=== PATIENT | female | born 1935 | race Caucasian/White ===

== ENCOUNTER 2020-07-28 18:33 | Emergency (ER) | payer BC, MEDICARE ==
--- NOTE | 2020-07-28 20:25 | ER Document Report ---
ED Medical Screen (RME) - General Chief Complaint: General Weakness Stated Complaint: SORE THROAT Time Seen by Provider: 07/28/20 20:08 - HPI Notes: Patient is a 85 y/o female with a hx of dermatomyositis who presents with increased generalized weakness and difficulty swallowing for the past week. Patient is normally able to ambulate and do laundry without difficulty but has been unable to this past week. She also reports difficulty swallowing and can no longer swallow solids. She states she is able to tolerate liquids and her oral secretions without difficulty. She denies fever, chest pain, shortness of breath, and abdominal pain. 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 - Related Data Home Medications: Prednisone, Lisinopril, Simvastatin, Synthroid Physical Exam - Vital signs Vitals: Temp Pulse Resp BP Pulse Ox 98.1 F 94 18 98/51 L 98 07/28/20 18:43 07/28/20 18:43 07/28/20 18:43 07/28/20 18:43 07/28/20 18:43 - HEENT Neck: Normal. No: Anterior cervical chain, Posterior cervical chain - Respiratory Respiratory status: No respiratory distress Breath sounds: Normal Course - Re-evaluation Re-evalutation: I have greeted and performed a rapid initial assessment of this patient. A comprehensive ED assessment and evaluation of the patient, analysis of test results and completion of medical decision making process will be conducted by an additional ED providers. - Vital Signs Vital signs: Temp Pulse Resp BP Pulse Ox 98.1 F 94 18 98/51 L 98 07/28/20 18:43 07/28/20 18:43 07/28/20 18:43 07/28/20 18:43 07/28/20 18:43
[2020-07-28 21:21] LABS: ABSOLUTE LYMPHOCYTES (AUTO) 0.7 10^3/uL (0.5-4.7); ABSOLUTE MONOCYTES (AUTO) 0.6 10^3/uL (0.1-1.4); ABSOLUTE NEUT (AUTO) 7.1 10^3/uL (1.7-8.2); BASOPHILS % (AUTO) 0.4 % (0-2); EOSINOPHILS % (AUTO) 0.3 % (0-6); HEMOGLOBIN 11.7 g/dL (12.0-15.5); LYMPHOCYTES % (AUTO) 8.3 % (13-45); MEAN CORPUSCULAR HEMOGLOBIN 30.4 pg (27.0-33.4); MEAN CORPUSCULAR HGB CONC 34.4 g/dL (32.0-36.0); MEAN CORPUSCULAR VOLUME 88 fl (80-97); MONOCYTES % (AUTO) 6.8 % (3-13); PLATELET COUNT 267 10^3/uL (150-450); RED BLOOD COUNT 3.85 10^6/uL (3.72-5.28); RED CELL DISTRIBUTION WIDTH 14.3 % (11.5-14.0); SEGMENTED NEUTROPHILS % (AUTO) 84.2 % (42-78); TOTAL CELLS COUNTED % (AUTO) 100 %; WHITE BLOOD COUNT 8.4 10^3/uL (4.0-10.5)
[2020-07-28 21:38] LABS: ALBUMIN 3.8 g/dL (3.5-5.0); ALKALINE PHOSPHATASE 50 U/L (38-126); ANION GAP 9 (5-19); ASPARTATE AMINO TRANSFERASE 43 U/L (14-36); BILIRUBIN,DIRECT 0.3 mg/dL (0.0-0.4); BILIRUBIN,TOTAL 0.8 mg/dL (0.2-1.3); BLOOD UREA NITROGEN 43 mg/dL (7-20); CALCIUM 10.1 mg/dL (8.4-10.2); CARBON DIOXIDE 22 mmol/L (22-30); CHLORIDE 104 mmol/L (98-107); GLUCOSE 143 mg/dL (75-110); POTASSIUM 4.9 mmol/L (3.6-5.0)
--- NOTE | 2020-07-28 22:30 | RADIOLOGY REPORT (SQ) ---
EXAM DESCRIPTION: XR CHEST 1 VIEW COMPLETED DATE/TME: 07/28/2020 22:07 CLINICAL HISTORY: 85 years, Female, difficulty swallowing COMPARISON: None. NUMBER OF VIEWS: 1 TECHNIQUE: Portable chest LIMITATIONS: None. FINDINGS: Cardiomegaly. Atheromatous change thoracic aorta. Osteopenia. Suspect small left effusion with minimal adjacent airspace opacity. No pneumothorax IMPRESSION: Cardiomegaly. Small left effusion with adjacent airspace opacity may reflect minor atelectasis or pneumonitis copyright 2011 [employer]- All Rights Reserved
--- NOTE | 2020-07-28 22:31 | RADIOLOGY REPORT (SQ) ---
EXAM DESCRIPTION: CT NECK WITH IV CONTRAST COMPLETED DATE/TME: 07/28/2020 22:16 CLINICAL HISTORY: 85 years, Female, difficulty swallowing COMPARISON: None. TECHNIQUE: 381 Images stored on PACS. All CT scanners at this facility use dose modulation, iterative reconstruction, and/or weight based dosing when appropriate to reduce radiation dose to as low as reasonably achievable (ALARA). [facility]: Dose Right [facility]: CareDose [facility]: Dose Right [facility]: Teradose 4D [facility]: [employer] LIMITATIONS: None. FINDINGS: Limited evaluation of brain parenchyma is unremarkable. The globes are intact. The paranasal sinuses and mastoid air cells are well aerated. The epiglottis is normal. The prevertebral soft tissues are normal. The airway is widely patent. There is no enhancing abnormality. The visualized parotid and some mandibular glands are unremarkable. Limited evaluation of the lung apices is unremarkable. There is no cervical chain adenopathy. IMPRESSION: Unremarkable CT neck TECHNICAL DOCUMENTATION: Quality ID # 436: Final reports with documentation of one or more dose reduction techniques (e.g., Automated exposure control, adjustment of the mA and/or kV according to patient size, use of iterative reconstruction technique) copyright 2010 [employer]- All Rights Reserved
--- NOTE | 2020-07-28 22:39 | EKG REPORT ---
SEVERITY:- ABNORMAL ECG - SINUS TACHYCARDIA LEFT AXIS DEVIATION CONSIDER ANTERIOR INFARCT NONSPECIFIC T ABNORMALITIES, DIFFUSE LEADS : Confirmed by: Jesi Trujillo 28-Jul-2020 22:39:11
[2020-07-28] MEDS ORDERED: NORMAL SALINE 1000 ML 1,000 ML IV ONE (22:42)
--- NOTE | 2020-07-28 22:55 | ER Document Report ---
ED General - General Chief Complaint: General Weakness Stated Complaint: SORE THROAT Time Seen by Provider: 07/28/20 20:08 Primary Care Provider: BANDAR YEUNG DO [NO LOCAL MD] - 07/29/20 BETTY CAROLINA MD [ACTIVE PROVISIONAL STAFF] - Follow up as needed - HPI Context: Chief Complaint: [Recent falls, difficulty swallowing solids] [This is a 85-year-old female with a history of elevated cholesterol, mild kidney insufficiency, recent diagnosis of dermatomyositis presenting to the emergency department for evaluation of difficulty swallowing. Patient is visiting from [facility] and stays with her daughter from May to November of each year. Patient reports that over the past 2 weeks she has noticed some difficulty that has gotten worse in terms of being able to swallow solids. P atient states she is still able to drink water and drink soup but after trying to swallow a spaghetti noodle earlier today that she could not get to pass, she became concerned and told her daughter that she thought she needed to come to the hospital. Patient also had a fall approximately 2 days ago. Patient was noted to be found on the floor by her daughter. Patient had reportedly fallen at 1230 on Wednesday and was on the floor for approximately 5 hours. Patient denies chest pain, shortness of breath, fever, chills, difficulty with speech, changes in vision, facial droop. Patient denies odynophagia, loss of sense of taste, loss of sense of smell, history of COVID-19 infection. Patient is usually able to walk and perform daily activities of living ] History obtained from [patient] Symptoms began:[ 2 weeks ago ] Onset: [gradual ] Timing: [gradual ] Quality: [painless ] Intensity: [0/5 ] Location: [generalized, gi tract ] Radiation: [denies ] [The pain does not migrate to a new location.] Aggravating factors: [none] Relieving factors: [none] [Denies] SOB [Denies] nausea [Denies] vomiting [Denies] sweats [Denies] fever [Denies] cough [Denies] calf or leg swelling or pain - Related Data Allergies/Adverse Reactions: ciprofloxacin [From Cipro] Allergy (Verified 07/28/20 20:22) Home Medications: Prednisone, Lisinopril, Simvastatin, Synthroid Past Medical History - General Information source: Patient, Relative - Social History Smoking Status: Never Smoker Family History: Reviewed & Not Pertinent Patient has homicidal ideation: No Review of Systems - Review of Systems Notes: Review of systems as below unless otherwise stated in HPI. CONSTITUTIONAL [No] fever, [No] chills. Positive weakness EYES [No] eye pain. ENT [No] URI symptoms, [No] sore throat, [No] ear pain. CARDIOVASCULAR [No] chest pain, [No] palpitations, [No] edema. RESPIRATORY [No] Cough, [No] SOB, [No] wheezing. GASTROINTESTINAL [No] abdominal pain, [No] nausea, [No] Diarrhea, [No] Vomiting, [No] constipation, [No] melena, [No] rectal bleeding. Positive dysphagia GENITOURINARY [No] dysuria, [No] urinary frequency, [No] hematuria, [No] urinary urgency, [No] vaginal discharge, [No] vaginal bleeding. MUSCULOSKELETAL [No] Back pain. SKIN [No] Rash. NEUROLOGIC [No] Headache, [No] recent seizures, [No] paralysis,[No] parathesias. ENDOCRINE [No] polyuria. HEMO/LYMPATIC [No] easy brusing PSYCHIATRIC [No] depression. Physical Exam - Vital signs Vitals: Temp Pulse Resp BP Pulse Ox 98.1 F 94 18 98/51 L 98 07/28/20 18:43 07/28/20 18:43 07/28/20 18:43 07/28/20 18:43 07/28/20 18:43 - Notes Notes: CONSTITUTIONAL [Vital signs reviewed, Patient appears comfortable, Alert and oriented X 3, Normal stature.] HEAD [Atraumatic, Normocephalic.] EYES [Eyes are normal to inspection, No discharge from eyes, Extraocular muscles intact, Sclera are normal, Conjunctiva are normal.] ENT [External ears normal to inspection, Nose examination normal, Mouth normal to inspection with the exception of a aphthous ulcer present on the left side of the patient's mouth. There appears to be no discharge or exudate present on the tongue.] NECK [Normal ROM, No jugular venous distention, No meningeal signs, ] RESPIRATORY CHEST [Chest is nontender, Breath sounds normal, No respiratory distress.] CARDIOVASCULAR [RRR, No murmurs, Normal S1 S2, No rub, No gallop.] ABDOMEN [Abdomen is nontender, No pulsatile masses, No other masses, Bowel sounds normal, No distension, No peritoneal signs, No hernias.] BACK [There is no CVA Tenderness, There is no tenderness to palpation, Normal inspection.] UPPER EXTREMITY [Inspection normal, No cyanosis, No clubbing, No edema, LOWER EXTREMITY [Inspection normal, No cyanosis, No clubbing, No edema, No calf tenderness, NEURO [No focal motor deficits, No focal sensory deficits, Speech normal.] SKIN [Patient has diffuse facial erythema that is macular and sporadic erythematous lesions on her upper extremities bilaterally] PSYCHIATRIC [Normal affect. ] Course - Re-evaluation Re-evalutation: 07/29/20 07:00 Dr. Carolina kindly came to the emergency department and did a bedside echo and found no abnormalities. 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 He also agrees that the patient needs to get into see a brake drum lathe operator as soon as possible. He recommends Dr. Bandar Yeung with [facility] rheumatology. This MD will help arrange a referral for the patient to be seen as an outpatient as soon as possible. 07/29/20 09:16 Dr. Carolina stated he would get in touch with the patient's daughter to schedule an outpatient cardiology evaluation using his own ultrasound for a more thorough echo. However he does feel this can be done as an outpatient. - Vital Signs Vital signs: Temp Pulse Resp BP Pulse Ox 98.1 F 94 32 H 124/63 97 07/28/20 18:43 07/28/20 18:43 07/29/20 06:32 07/29/20 07:31 07/29/20 07:59 - Laboratory Results Result Diagrams: 07/28/20 21:00 07/29/20 01:18 Laboratory Results Interpreted: 07/28/20 07/28/20 07/29/20 21:00 21:00 01:18 Hgb 11.7 L Hct 34.0 L RDW 14.3 H Lymph % (Auto) 8.3 L Seg Neutrophils % 84.2 H Sodium 134.8 L 134.6 L Chloride 108 H Carbon Dioxide 21 L BUN 43 H 41 H Creatinine 1.35 H Est GFR ( Amer) 45 L 51 L Est GFR (MDRD) Non-Af 37 L 42 L Glucose 143 H AST 43 H Total Protein 5.7 L Albumin 2.9 L Ur Leukocyte Esterase 07/29/20 03:04 Hgb Hct RDW Lymph % (Auto) Seg Neutrophils % Sodium Chloride Carbon Dioxide BUN Creatinine Est GFR ( Amer) Est GFR (MDRD) Non-Af Glucose AST Total Protein Albumin Ur Leukocyte Esterase MODERATE H Critical Laboratory Results Reviewed: Yes Attending or Supervising Physician who Reviewed Labs: DANNY SHINE IV - Troponin levels discussed with Dr. Carolina - Radiology Results Critical Radiology Results Reviewed: No Critical Results Attending or Supervising Physician who Reviewed Radiology: DANNY SHINE IV - EKG Interpretation by Me Additional EKG results interpreted by me: 07/28/20 23:06 EKG obtained on 07/28/2020 2034 hrs. was interpreted by this MD. Findings sinus tachycardia, rate 100, left axis deviation is present, [place] interval appears to be within normal limits, P waves preceding QRS complexes, QRS complexes appear to be narrow, QTC is 449, there are no obvious patterns of ST segment elevation, depression or reciprocal changes seen to suggest acute myocardial ischemia or infarction. There is no prior EKG available for comparison. Impression: Sinus tachycardia with left axis deviation and nonspecific ST segments. - Consults Dr. Carolina, Cardiology Time consulted: 05:29 - Stated he did not have a good explanation for the elevation in troponins but recommended keeping the patient in the ED and he will come see her in the ED shortly into a bedside echo to evaluate if she has any cardiac ischemic abnormality Reason for consultation: 07/29/20 05:29 elevated but declining troponins in pt with renal insufficiency, dermatomyositis, generalized weakness Consulted provider: will come to ER Discharge - Discharge Clinical Impression: Dermatomyositis, Dehydration, Elevated troponin I level Dysphagia Qualifiers: Dysphagia type: unspecified Qualified Code(s): R13.10 - Dysphagia, unspecified UTI (urinary tract infection) Qualifiers: Urinary tract infection type: site unspecified Hematuria presence: without hematuria Qualified Code(s): N39.0 - Urinary tract infection, site not specified Condition: Stable Disposition: HOME, SELF-CARE Instructions: Urinary Tract Infection ([facility]) Additional Instructions: Return to the Emergency Department without delay if any worse. HOME CARE INSTRUCTIONS & INFORMATION: Thank you for choosing us for your medical needs. We hope you're satisfied with the care you received. After you leave, you must properly care for your problem and, at the same time, observe its progress. Any condition can change. Some illnesses can change rapidly over hours or days. If your condition worsens, return to the Emergency Department or see your physician promptly. ABOUT YOUR X-RAYS AND EKG'S: If you had an EKG or X-rays taken, they have been read by the Emergency Physician. The X-rays and EKG's will also be read by a Radiologist or Barrel Assembly Inspector within 24 hours. If discrepancies are noted, you will be notified by telephone. Please be certain the ED has a correct telephone number & address where you can be reached. Also, realize that some fractures or abnormalities do not show up on initial X-rays. If your symptoms continue, see your physician. ABOUT YOUR LABORATORY TEST: If you had laboratory tests, the results have been reviewed by the Emergency Physician. Some test results (for example cultures) may not be available for several days. You will be contacted if any test result shows you need additional treatment. Please be certain the ED has a correct telephone number and address where you can be reached. ABOUT YOUR MEDICATIONS: You will receive instructions on how to take your medicine on the prescription label you receive. Additional information may be provided by the Pharmacy. If you have questions afterwards, call the ED for clarification or further instructions. Some prescribed medications may cause drowsiness. Do not perform tasks such as driving a car or operating machinery without consulting your Pharmacist. If you feel you need a refill of pain medication, your condition will need re-evaluation. Please do not call for a refill of any medication. ABOUT YOUR SIGNATURE: Signature of this document acknowledges to followin. Understanding that you received emergency treatment and that you may be released before al medical problems are known or treated. Please be certain the ED has a correct phone number & address where you can be reached. 2. Acknowledgement that you will arrange for follow-up care as recommended. 3. Authorization for the Emergency Physician to provide information to your follow-up Physician in order to maximize your care. AT ANY TIME, IF YOUR SYMPTOMS CHANGE SIGNIFICANTLY OR WORSEN OR YOU DEVELOP NEW SYMPTOMS, RETURN TO THE EMERGENCY DEPARTMENT IMMEDIATELY FOR RE-EVALUATION. OUR GOAL IS TO PROVIDE EXCELLENT MEDICAL CARE! WE HOPE THAT WE HAVE MET YOUR EXPECTATIONS DURING YOUR EMERGENCY DEPARTMENT VISIT AND THAT YOU FEEL YOU HAVE RECEIVED EXCELLENT CARE! Prescriptions: Cefdinir 600 mg PO DAILY 7 Days #90 ml Prednisone [Deltasone 10 mg Tablet] 10 mg PO ASDIR PRN #21 tablet PRN Reason: Referrals: BANDAR YEUNG DO [NO LOCAL MD] - 07/29/20 BETTY CAROLINA MD [ACTIVE PROVISIONAL STAFF] - Follow up as needed
[2020-07-28] MEDS ORDERED: ASPIRIN 81 MG TABLET, CHEWABLE PO ONE (22:59)
[2020-07-28] MEDS ORDERED: METHYLPREDNISOLONE INJ 125 MG/2 ML SDV IV ONE (23:37)
--- NOTE | 2020-07-28 23:38 | RADIOLOGY REPORT (SQ) ---
EXAM DESCRIPTION: CT HEAD WITHOUT IV CONTRAST COMPLETED DATE/TME: 07/28/2020 23:13 CLINICAL HISTORY: 85 years, Female, recent falls and dysphagia COMPARISON: None. TECHNIQUE: 271 Images stored on PACS. All CT scanners at this facility use dose modulation, iterative reconstruction, and/or weight based dosing when appropriate to reduce radiation dose to as low as reasonably achievable (ALARA). [facility]: Dose Right [facility]: CareDose [facility]: Dose Right [facility]: Teradose 4D [facility]: [employer] LIMITATIONS: None. FINDINGS: The globes are intact. The paranasal sinuses and mastoid air cells are well aerated. No displaced or depressed skull fracture. No acute intracranial hemorrhage. CT is limited for evaluation of acute infarct. No CT evidence for large or territorial acute infarct. There is residual contrast within the vascular system, as the patient had a recent contrast-enhanced exam. This can limit assessment for subtle areas of intracranial hemorrhage. Mild diffuse atrophy. Minor small vessel ischemic change. No mass or midline shift IMPRESSION: Mild atrophy and small vessel ischemic change TECHNICAL DOCUMENTATION: Quality ID # 436: Final reports with documentation of one or more dose reduction techniques (e.g., Automated exposure control, adjustment of the mA and/or kV according to patient size, use of iterative reconstruction technique) copyright 2011 [employer]- All Rights Reserved
[2020-07-29 01:56] LABS: ALBUMIN 2.9 g/dL (3.5-5.0); ALKALINE PHOSPHATASE 52 U/L (38-126); ANION GAP 6 (5-19); ASPARTATE AMINO TRANSFERASE 35 U/L (14-36); BILIRUBIN,DIRECT 0.2 mg/dL (0.0-0.4); BILIRUBIN,TOTAL 0.6 mg/dL (0.2-1.3); BLOOD UREA NITROGEN 41 mg/dL (7-20); CALCIUM 8.8 mg/dL (8.4-10.2); CARBON DIOXIDE 21 mmol/L (22-30); CHLORIDE 108 mmol/L (98-107); GLUCOSE 101 mg/dL (75-110); POTASSIUM 4.5 mmol/L (3.6-5.0); TOTAL PROTEIN 5.7 g/dL (6.3-8.2)
[2020-07-29 03:34] LABS: APPEARANCE,URINE SLIGHTLY-CLOUDY; BILIRUBIN,URINE NEGATIVE (NEGATIVE); COLOR,URINE STRAW; GLUCOSE, URINE NEGATIVE (NEGATIVE); KETONES,URINE NEGATIVE (NEGATIVE); LEUKOCYTE ESTERASE,URINE MODERATE (NEGATIVE); NITRITE,URINE NEGATIVE (NEGATIVE); PROTEIN,URINE NEGATIVE (NEGATIVE); URINE SPECIFIC GRAVITY 1.029; UROBILINOGEN,URINE NEGATIVE mg/dL (<2.0)
[2020-07-29] MEDS ORDERED: NORMAL SALINE 1000 ML 1,000 ML IV ONE (04:19)
--- NOTE | 2020-07-29 07:15 | PDOC CONSULTATION ---
Consultation Consult Date: 07/29/20 Attending physician:: DANNY SHINE IV Provider Consulted: BETTY OLIVO Consult reason:: Elevated troponin History of Present Illness History of Present Illness: HENRY BARBER is a 85 year old female This is a 85-year-old female with a history of hypertension, hyperlipidemia, renal insufficiency and recently diagnosed with dermatomyositis who is consulted to our service for mildly elevated cardiac troponin levels. The patient had been in her usual state of health until several weeks ago when she began with difficulty swallowing and generalized muscular weakness particularly in the lower extremities. She is saw a provider in [place] who diagnosed her with dermatomyositis and then she traveled to [place] to spend a few months with her children. She specifically denies chest pain, shortness of breath, MEJIA, PND, lower extremity edema, palpitations, syncope and presyncope. Physical exam on 07/29/2020 in the emergency department: GENERAL: Pleasant and conversational. Oriented x3 with normal mood. Not in acute distress. Well groomed and well developed. HEENT: Normocephalic, atraumatic. Pupils equal. Sclerae anicteric. Oropharynx moist. NECK: No JVD. No carotid bruits. LUNGS: Clear to auscultation bilaterally. Normal respiratory effort without the use of accessory muscles or intercostal retractions. CARDIOVASCULAR: Regular rate and rhythm, normal S1 and S2 without murmurs, rubs, or gallops. PMI not displaced. ABDOMEN: No masses or tenderness to palpation. No bruit. No splenomegaly or hepatomegaly. No abdominal aorta bruit noted. EXTREMITIES: No edema, no cyanosis, no clubbing. +2 pulses femoral and pedal pulses bilaterally. SKIN: No lesions or rashes. MUSCULOSKELETAL: No chest tenderness to palpation. Bedside, limited echocardiogram performed by myself: -Normal LV systolic function without regional wall motion abnormalities. ] Social History Smoking Status: Never Smoker Family History Family History: Reviewed & Not Pertinent Parental Family History Reviewed: Yes Children Family History Reviewed: Yes Sibling(s) Family History Reviewed.: Yes Medication/Allergy Allergies/Adverse Reactions: ciprofloxacin [From Cipro] Allergy (Verified 07/28/20 20:22) Physical Exam Vital Signs: Temp Pulse Resp BP Pulse Ox 98.1 F 94 18 98/51 L 98 07/28/20 18:43 07/28/20 18:43 07/28/20 18:43 07/28/20 18:43 07/28/20 18:43 Intake & Output 07/28/20 07/29/20 07/30/20 06:59 06:59 06:59 Intake Total 1999 Balance 1999 Weight 51.7 kg Results Laboratory Results: 07/28/20 21:00 07/29/20 01:18 07/28/20 07/28/20 07/28/20 21:00 21:00 21:00 WBC 8.4 RBC 3.85 Hgb 11.7 L Hct 34.0 L MCV 88 MCH 30.4 MCHC 34.4 RDW 14.3 H Plt Count 267 Seg Neutrophils % 84.2 H Sodium 134.8 L Potassium 4.9 Chloride 104 Carbon Dioxide 22 Anion Gap 9 BUN 43 H Creatinine 1.35 H Est GFR ( Amer) 45 L Glucose 143 H Calcium 10.1 Magnesium 2.1 Total Bilirubin 0.8 AST 43 H Alkaline Phosphatase 50 Total Protein 7.0 Albumin 3.8 Urine Color Urine Appearance Urine pH Ur Specific [place] Urine Protein Urine Glucose (UA) Urine Ketones Urine Blood Urine Nitrite Ur Leukocyte Esterase Urine WBC (Auto) Urine RBC (Auto) 07/29/20 07/29/20 01:18 03:04 WBC RBC Hgb Hct MCV MCH MCHC RDW Plt Count Seg Neutrophils % Sodium 134.6 L Potassium 4.5 Chloride 108 H Carbon Dioxide 21 L Anion Gap 6 BUN 41 H Creatinine 1.21 Est GFR ( Amer) 51 L Glucose 101 Calcium 8.8 Magnesium Total Bilirubin 0.6 AST 35 Alkaline Phosphatase 52 Total Protein 5.7 L Albumin 2.9 L Urine Color STRAW Urine Appearance SLIGHTLY-CLOUDY Urine pH 5.0 Ur Specific [place] 1.029 Urine Protein NEGATIVE Urine Glucose (UA) NEGATIVE Urine Ketones NEGATIVE Urine Blood NEGATIVE Urine Nitrite NEGATIVE Ur Leukocyte Esterase MODERATE H Urine WBC (Auto) 10 Urine RBC (Auto) 1 07/28/20 07/28/20 07/28/20 21:00 21:00 23:55 Creatine Kinase 57 Troponin I 0.844 0.647 07/29/20 01:18 Creatine Kinase Troponin I 0.648 Impressions: Chest X-Ray 07/28/20 20:19 IMPRESSION: Cardiomegaly. Small left effusion with adjacent airspace opacity may reflect minor atelectasis or pneumonitis copyright 2011 [employer] All Rights Reserved Soft Tissue Neck CT 07/28/20 20:19 IMPRESSION: Unremarkable CT neck TECHNICAL DOCUMENTATION: Quality ID # 436: Final reports with documentation of one or more dose reduction techniques (e.g., Automated exposure control, adjustment of the mA and/or kV according to patient size, use of iterative reconstruction technique) copyright 2010 [employer])- All Rights Reserved Head CT 07/28/20 22:43 IMPRESSION: Mild atrophy and small vessel ischemic change TECHNICAL DOCUMENTATION: Quality ID # 436: Final reports with documentation of one or more dose reduction techniques (e.g., Automated exposure control, adjustment of the mA and/or kV according to patient size, use of iterative reconstruction technique) copyright 2010 [employer] All Rights Reserved 07/28/20 21:00 07/29/20 01:18 MCV 88 fl (80-97) 07/28/20 21:00 MCH 30.4 pg (27.0-33.4) 07/28/20 21:00 MCHC 34.4 g/dL (32.0-36.0) 07/28/20 21:00 RDW 14.3 % (11.5-14.0) H 07/28/20 21:00 Seg Neutrophils % 84.2 % (42-78) H 07/28/20 21:00 Chloride 108 mmol/L (98-107) H 07/29/20 01:18 Carbon Dioxide 21 mmol/L (22-30) L 07/29/20 01:18 Anion Gap 6 (5-19) 07/29/20 01:18 Est GFR ( Amer) 51 (>60) L 07/29/20 01:18 Glucose 101 mg/dL (75-110) 07/29/20 01:18 Calcium 8.8 mg/dL (8.4-10.2) 07/29/20 01:18 Magnesium 2.1 mg/dL (1.6-2.3) 07/28/20 21:00 Total Bilirubin 0.6 mg/dL (0.2-1.3) 07/29/20 01:18 AST 35 U/L (14-36) 07/29/20 01:18 Alkaline Phosphatase 52 U/L (38-126) 07/29/20 01:18 Total Protein 5.7 g/dL (6.3-8.2) L 07/29/20 01:18 Albumin 2.9 g/dL (3.5-5.0) L 07/29/20 01:18 Urine Color STRAW 07/29/20 03:04 Urine Appearance SLIGHTLY-CLOUDY 07/29/20 03:04 Urine pH 5.0 (5.0-9.0) 07/29/20 03:04 Ur Specific [place] 1.029 07/29/20 03:04 Urine Protein NEGATIVE mg/dL (NEGATIVE) 07/29/20 03:04 Urine Glucose (UA) NEGATIVE mg/dL (NEGATIVE) 07/29/20 03:04 Urine Ketones NEGATIVE mg/dL (NEGATIVE) 07/29/20 03:04 Urine Blood NEGATIVE (NEGATIVE) 07/29/20 03:04 Urine Nitrite NEGATIVE (NEGATIVE) 07/29/20 03:04 Ur Leukocyte Esterase MODERATE (NEGATIVE) H 07/29/20 03:04 Urine WBC (Auto) 10 /HPF 07/29/20 03:04 Urine RBC (Auto) 1 /HPF 07/29/20 03:04 07/28/20 07/28/20 07/28/20 21:00 21:00 23:55 Creatine Kinase 57 Troponin I 0.844 0.647 07/29/20 01:18 Creatine Kinase Troponin I 0.648 Current Medication List Discontinued Medications Generic Name Dose Route Start Last Admin Trade Name Dayoq PRN Reason Stop Dose Admin Aspirin 324 mg 07/28/20 22:59 07/28/20 23:13 Aspirin 81 Mg Tablet, Chewable PO 07/28/20 23:00 324 mg NOW ONE Administration Sodium Chloride 1,000 mls @ 0 mls/hr 07/28/20 22:42 07/29/20 00:09 Nacl 0.9% 1000 Ml Iv Soln IV 07/28/20 22:43 Infused BOLUS ONE Infusion Wide Open Sodium Chloride 1,000 mls @ 0 mls/hr 07/29/20 04:19 07/29/20 05:09 Nacl 0.9% 1000 Ml Iv Soln IV 07/29/20 04:20 Infused BOLUS ONE Infusion Wide Open Methylprednisolone Sodium Succinate 50 mg 07/28/20 23:37 07/29/20 00:05 Methylprednisolone Inj 125 Mg/2 Ml Sdv IV 07/28/20 23:38 50 mg NOW ONE Administration Assessment & Plan - Diagnosis (1) Elevated troponin Is this a current diagnosis for this admission?: Yes Plan: 85-year-old female with a recent diagnosis of dermatomyositis who came to the emergency room for generalized weakness and trouble swallowing. She has remained asymptomatic from the cardiovascular standpoint and specifically denied ischemic symptoms as well as heart failure symptoms. Her troponin peaked at 0.8 and is already trending down to 0.6. A limited bedside echocardiogram performed by me using the ultrasound machine in the emergency room demonstrated a normal ejection fraction without regional wall motion abnormalities. Although dermatomyositis is more associated with elevated cardiac troponin T it can also be rarely associated with elevated troponin I. Given the fact that the patient has no ischemic symptoms whatsoever and that her bedside echocardiogram was of good quality and did not reveal any regional wall motion normalities or abnormal ejection fraction I believe her elevated troponin is likely from dermatomyositis. Recommendations: -No indication for further cardiac work-up at this point. -I will try to arrange rheumatology consult with Dr. Bandar Yeung at [facility].
[2020-07-29] MEDS ORDERED: CEFTRIAXONE 1 GM/D5W RTU 1 GM/50 ML RTUPB IV ONE (07:32)
[2020-07-29 07:50] VITALS: BP 124/63
== END 2020-07-29 08:28 | disposition home or self-care (01) ==
LOC: ER 18:33
DX: M33.90 Dermatopolymyositis, unspecified, organ involvement unspecified (principal); R13.10 Dysphagia, unspecified; N39.0 Urinary tract infection, site not specified; E86.0 Dehydration; R53.1 Weakness; N28.9 Disorder of kidney and ureter, unspecified; I11.9 Hypertensive heart disease without heart failure; J90 Pleural effusion, not elsewhere classified; K12.0 Recurrent oral aphthae; R00.0 Tachycardia, unspecified; R79.89 Other specified abnormal findings of blood chemistry; E78.5 Hyperlipidemia, unspecified; E78.00 Pure hypercholesterolemia, unspecified; Z79.52 Long term (current) use of systemic steroids; Z79.899 Other long term (current) drug therapy; Z88.1 Allergy status to other antibiotic agents
CPT/HCPCS: 93005; 99285; 96361; 96375; 96365; 36415; 82550; 83735; 85025; 80053; 81001; 84484; 71045; 70450; 70491; 93010; J2930; J7030 ×2; J0696

== ENCOUNTER 2020-08-01 17:25 | Inpatient (IN) | payer MEDICARE ==
--- NOTE | 2020-08-01 18:12 | RADIOLOGY REPORT (SQ) ---
EXAM DESCRIPTION: CT CERVICAL SPINE WITHOUT IMAGES COMPLETED DATE/TIME: 08/01/2020 5:58 pm REASON FOR STUDY: fall COMPARISON: None. TECHNIQUE: Axial images acquired through the cervical spine without intravenous contrast. Images re viewed with lung, soft tissue and bone windows. Reconstructed coronal and sagittal MPR images review ed. Images stored on PACS. All CT scanners at this facility use dose modulation, iterative reconstruction, and/or weight based d osing when appropriate to reduce radiation dose to as low as reasonably achievable (ALARA). [facility]: Dose Right [facility]: CareDose [facility]: Dose Right [facility]: Teradose 4D [facility]: Smart [employer] RADIATION DOSE: CT Rad equipment meets quality standard of care and radiation dose reduction techniq ues were employed. CTDIvol: 11.3 mGy. DLP: 228 mGy-cm. mGy. LIMITATIONS: None. FINDINGS: ALIGNMENT: Anatomic. MINERALIZATION: Normal. VERTEBRAL BODIES: No fractures or dislocation. DISCS: Disc spaces are narrowed from C3-C7. Very small marginal osteophytes are present FACETS, LATERAL MASSES, POSTERIOR ELEMENTS: No fractures. No dislocation. No acute findings. HARDWARE: None in the spine. VISUALIZED RIBS: No fractures. LUNG APICES AND SOFT TISSUES: No significant or acute findings. OTHER: No other significant finding. IMPRESSION: Degenerative disc disease and spondylosis. No acute findings. TECHNICAL DOCUMENTATION: JOB ID: [id number] Quality ID # 436: Final reports with documentation of one or more dose reduction techniques (e.g., Au tomated exposure control, adjustment of the mA and/or kV according to patient size, use of iterative reconstruction technique) 2010 [employer]- All Rights Reserved Reading location - IP/workstation name: [email or web address]
--- NOTE | 2020-08-01 18:14 | RADIOLOGY REPORT (SQ) ---
EXAM DESCRIPTION: CT HEAD WITHOUT IMAGES COMPLETED DATE/TIME: 08/01/2020 5:58 pm REASON FOR STUDY: fall COMPARISON: None. TECHNIQUE: Axial images acquired through the brain without intravenous contrast. Images reviewed wi th bone, brain and subdural windows. Additional sagittal and coronal reconstructions were generated. Images stored on PACS. All CT scanners at this facility use dose modulation, iterative reconstruction, and/or weight based d osing when appropriate to reduce radiation dose to as low as reasonably achievable (ALARA). [facility]: Dose Right [facility]: CareDose [facility]: Dose Right [facility]: Teradose 4D [facility]: Smart SHERPA assistant RADIATION DOSE: CT Rad equipment meets quality standard of care and radiation dose reduction techniq ues were employed. CTDIvol: 53.2 mGy. DLP: 991 mGy-cm. mGy. LIMITATIONS: None. FINDINGS: VENTRICLES: Normal size and contour. CEREBRUM: No masses. No hemorrhage. No midline shift. No evidence for acute infarction. Normal gra y/white matter differentiation. No areas of low density in the white matter. CEREBELLUM: No masses. No hemorrhage. No alteration of density. No evidence for acute infarction. EXTRAAXIAL SPACES: No fluid collections. No masses. ORBITS AND GLOBE: No intra- or extraconal masses. Normal contour of globe without masses. CALVARIUM: No fracture. PARANASAL SINUSES: No fluid or mucosal thickening. SOFT TISSUES: No mass or hematoma. OTHER: No other significant finding. IMPRESSION: NORMAL BRAIN CT WITHOUT CONTRAST. EVIDENCE OF ACUTE STROKE: NO. COMMENT: Quality ID # 436: Final reports with documentation of one or more dose reduction techniques (e.g., Automated exposure control, adjustment of the mA and/or kV according to patient size, use of iterative reconstruction technique) TECHNICAL DOCUMENTATION: JOB ID: [id number] 2010 Currently- All Rights Reserved Reading location - IP/workstation name: [email or web address]
[2020-08-01] MEDS ORDERED: DIPH/PERTUSS(ACELL)/TETANUS VAC/PF 0.5 ML SYR (>=10YO) IM ONE (22:43)
[2020-08-01 23:07] LABS: HEMATOCRIT 30.6 % (36.0-47.0); HEMOGLOBIN 10.2 g/dL (12.0-15.5); MEAN CORPUSCULAR HEMOGLOBIN 29.6 pg (27.0-33.4); MEAN CORPUSCULAR HGB CONC 33.5 g/dL (32.0-36.0); MEAN CORPUSCULAR VOLUME 88 fl (80-97); PLATELET COUNT 246 10^3/uL (150-450); RED BLOOD COUNT 3.47 10^6/uL (3.72-5.28); RED CELL DISTRIBUTION WIDTH 14.4 % (11.5-14.0); WHITE BLOOD COUNT 9.1 10^3/uL (4.0-10.5)
[2020-08-01 23:22] LABS: ALBUMIN 3.1 g/dL (3.5-5.0); ALKALINE PHOSPHATASE 33 U/L (38-126); ASPARTATE AMINO TRANSFERASE 34 U/L (14-36); BILIRUBIN,DIRECT 0.2 mg/dL (0.0-0.4); BILIRUBIN,TOTAL 0.8 mg/dL (0.2-1.3); BLOOD UREA NITROGEN 34 mg/dL (7-20); CALCIUM 8.8 mg/dL (8.4-10.2); CARBON DIOXIDE 21 mmol/L (22-30); CHLORIDE 111 mmol/L (98-107); CREATINE KINASE 37 U/L (30-135); GLUCOSE 103 mg/dL (75-110); POTASSIUM 4.3 mmol/L (3.6-5.0); TOTAL PROTEIN 5.9 g/dL (6.3-8.2)
--- NOTE | 2020-08-01 23:23 | RADIOLOGY REPORT (SQ) ---
CLINICAL INDICATION: weakness fall. . TECHNIQUE: Single view(s) obtained of the pelvis. COMPARISON: None. FINDINGS: No acute displaced fracture is identified. Alignment appears anatomic. Osteoarthritis. Surrounding soft tissues are unremarkable. IMPRESSION: No acute displaced fracture is identified.
--- NOTE | 2020-08-01 23:24 | RADIOLOGY REPORT (SQ) ---
CLINICAL INDICATION: weakness fall. TECHNIQUE: A single portable AP view was obtained of the chest at 2250 hours. COMPARISON: July 28, 2020. FINDINGS: The cardiomediastinal silhouette is enlarged but stable. The lungs are grossly clear. No evidence of effusion or pneumothorax. Chronic changes. Osteoarthritis. IMPRESSION: No evidence of active intrathoracic disease. Chronic change
[2020-08-01 23:28] LABS: ANION GAP 3 (5-19)
[2020-08-01 23:31] LABS: ABSOLUTE MONOCYTES # (MANUAL) 0.5 10^3/uL (0.1-1.4); BASOPHILS % (MANUAL) 0 % (0-2); EOSINOPHILS % (MANUAL) 0 % (0-6); LYMPHOCYTES % (MANUAL) 11 % (13-45); MONOCYTES % (MANUAL) 5 % (3-13); SEGMENTED NEUTROPHILS % (MAN) 84 % (42-78); TOTAL CELLS COUNTED 100
--- NOTE | 2020-08-01 23:31 | ER Document Report ---
ED General - General Chief Complaint: Fall Stated Complaint: FALL Notes: 85-year-old female with hypertension, hyperlipidemia, hypothyroidism, and recent diagnosis of dermatomyositis presents with fall just prior to arrival. Patient and daughter state that patient was transferring to standing and that she lost her balance and fell hitting her head. Patient and daughter state that patient has over the past year has had worsening gait stability and has had falls pr eviously, they deny any acute change in this although they do endorse perhaps generalized mild weakness worse over shorter timeframe but unknown duration. Patient feels well. Patient/daughter deny LOC, altered mental status, anticoagulation/antiplatelet therapy, neck pain, back pain, chest pain, s hortness of breath, abdominal pain, vomiting, recent fevers, urinary symptoms, cough, sick contacts, cardiac history. Patient was seen in the ED 4 days ago for gradually worsening several weeks of difficulty swallowing and had UA that showed moderate LE and was started on antibiotics which patient has been taking. Patient denies ever having any recent urinary symptoms. Unknown last tetanus vaccination booster. - Related Data Allergies/Adverse Reactions: ciprofloxacin [From Cipro] Allergy (Verified 07/28/20 20:22) Past Medical History - General Information source: Patient, Relative - Social History Smoking Status: Never Smoker Frequency of alcohol use: None Drug Abuse: None Family History: Reviewed & Not Pertinent Past Surgical History: Reports: Hx Hysterectomy - partial Review of Systems - Review of Systems Notes: REVIEW OF SYSTEMS: CONSTITUTIONAL : Denies fever, chills, or sweats. EENT: Denies recent cold/sinus symptoms, denies throat pain CARDIOVASCULAR: Denies chest pain, [place] RESPIRATORY: Denies cough, denies shortness of breath. GASTROINTESTINAL: Denies abdominal pain, nausea/vomiting. GENITOURINARY: Denies difficulty urinating, painful urination. FEMALE GENITOURINARY: Denies vaginal bleeding, vaginal discharge. MUSCULOSKELETAL: Denies neck pain, back pain. SKIN: Denies rash or skin lesions. HEMATOLOGIC : Denies easy bruising or bleeding. LYMPHATIC: Denies swollen, enlarged glands. NEUROLOGICAL: Denies headache, denies change in gait. PSYCHIATRIC: Denies anxiety or stress or depression. Physical Exam - Vital signs Vitals: Resp 13 08/01/20 17:28 - Notes Notes: PHYSICAL EXAMINATION: GENERAL: Well-appearing, well-nourished talkative pleasant elderly woman sitting up in stretcher with no visible signs of discomfort and in no acute distress. HEAD: Approximately 3 cm area of very mild edema over left parietal scalp with small abrasion, no active bleeding, no skull deformities. EYES: Pupils equal round and appropriate constriction, sclera anicteric, conjunctiva are normal. ENT: nares patent, moist mucous membranes. NECK/BACK: Normal range of motion, supple without lymphadenopathy no C/T/L/S sp inal deformity or tenderness LUNGS: Breath sounds clear to auscultation bilaterally and equal. No wheezes rales or rhonchi. Normal respiratory rate and effort HEART/CHEST: Regular rate and rhythm with faint systolic murmur loudest over upper right sternal border no chest tenderness, no signs of trauma ABDOMEN: Soft, nontender, no guarding, no masses, no CVAT EXTREMITIES: Normal range of motion, no pitting or edema. No cyanosis. Pelvis stable, no bony tenderness on full undressed head to toe trauma evaluation with rolling. Patient with very faint abrasion over left elbow nontender full range of motion NEUROLOGICAL: Awake, alert, conversing appropriately, moves all extremities s pontaneously. PSYCH: Normal mood, normal affect. SKIN: Warm, Dry, normal turgor Course - Re-evaluation Re-evalutation: 08/01/20 23:42 Patient with fall likely secondary to chronic gait instability and generalized weakness, but appears to be more weak recently of unknown duration so obtain EKG chest x-ray labs to rule out atypical ACS, electrolyte abnormalities, symptomatic anemia. CT head and cervical spine CT without any emergent findings. Patient with elevated troponin on further discussion with patient and daughter and review of past chart patient had this on his visit 4 days ago and it has decreased greatly since then. On that ED visit women's activities adviser Dr. Carolina evaluated patient in ED performed bedside echo and attributed elevated troponin to myocardial contusion and was discharged with follow-up outpatient. Given patient's age and recent appendicitis diagnosis which could be a sign of underlying malignancy will obtain D-dimer but low pretest probability and no other risk factors so Wells score is low and able to rule out with D-dimer. Will obtain 4-hour repeat troponin in the sure that troponin level continues to downtrend as this troponin level is consistent with a prior elevation of 4 days ago and continued circulation and blood unless there is uptrending on repeat. We will continue to monitor. 08/02/20 06:36 Patient continues to feel well in ED however her repeat troponin slightly uptrended from initial. Because of unknown cause of initial troponin elevation I ordered D-dimer which was positive but there was no PE on CTA. Patient has never had a stress test and given elevated troponins and age patient appropriate for observation with cardiology eval and likely stress. Informed patient and daughter of plan which they were in agreement with. I evaluated patient's home meds but none need to be given emergently and will defer this to the inpatient team. Patient seen by Dr. Marmolejo and accepted to observation telemetry. - Vital Signs Vital signs: Temp Pulse Resp BP Pulse Ox 97.8 F 27 H 116/71 96 08/02/20 05:41 08/02/20 06:01 08/02/20 06:00 08/02/20 06:01 - Laboratory Results Result Diagrams: 08/01/20 22:55 08/01/20 22:55 Laboratory Results Interpreted: 08/01/20 08/01/20 08/01/20 22:55 22:55 22:55 RBC 3.47 L Hgb 10.2 L Hct 30.6 L RDW 14.4 H Seg Neuts % (Manual) 84 H Lymphocytes % (Manual) 11 L D-Dimer 2.33 H Sodium 135.3 L Chloride 111 H Carbon Dioxide 21 L Anion Gap 3 L BUN 34 H Est GFR (MDRD) Non-Af 54 L Alkaline Phosphatase 33 L Total Protein 5.9 L Albumin 3.1 L Critical Laboratory Results Reviewed: No Critical Results - Radiology Results Critical Radiology Results Reviewed: No Critical Results - EKG Interpretation by Me Additional EKG results interpreted by me: 08/02/20 06:38 Initial EKG: Sinus rhythm, no significant ST elevations or depressions, lateral T wave inversions not significantly changed from prior EKG Repeat EKG: EKG: Sinus rhythm, no significant ST elevations or depressions, lateral T wave inversions appear more prominent than initial EKG Discharge - Discharge Clinical Impression: Cardiac enzymes elevated, Abnormal EKG Head injury Qualifiers: Encounter type: initial encounter Qualified Code(s): S09.90XA - Unspecified injury of head, initial encounter Disposition: ADMITTED OBSERVATION Admitting Provider: Jaleel Unit Admitted: Telemetry
[2020-08-01 23:33] LABS: ANISOCYTOSIS SLIGHT; BURR CELLS 1+; OVALOCYTES SLIGHT; PLATELET COMMENT ADEQUATE; POIKILOCYTOSIS SLIGHT; TOXIC GRANULATION 1+; TOXIC VACUOLATION PRESENT
--- NOTE | 2020-08-02 04:52 | RADIOLOGY REPORT (SQ) ---
CT angiogram chest with contrast on 08/02/2020 at 3:40 AM CLINICAL INDICATION: Fall, elevated d-dimer, weakness TECHNIQUE: Multiple axial images are obtained throughout the chest following the administration of IV contrast. Computer generated 3D reconstructions/MIPS were performed. This exam was performed according to our departmental dose-optimization program, which includes automated exposure control, adjustment of the mA and/or kV according to patient size and/or use of iterative reconstruction technique. Total DLP is 642.66 mGy*cm. COMPARISON: None FINDINGS: There is a small 4 cm ascending thoracic aortic aneurysm. There is no descending thoracic aortic aneurysm and no evidence of aortic dissection. Gallstones are noted in the gallbladder. Left renal atrophy is partially imaged. Pectus excavatum deformity of the lower chest is noted. Limited visualized upper abdomen is otherwise unremarkable. There is no pleural or pericardial effusion. There is no thoracic adenopathy. There are no filling defects within the pulmonary arteries to suggest pulmonary embolus. There is mild bilateral dependent and basilar atelectasis. There are mild areas of mosaic attenuation likely representing mild areas of air trapping. The lungs are otherwise clear. No acute bony abnormality is noted. IMPRESSION: 1. No evidence of pulmonary embolus. 2. Cholelithiasis. 3. Left renal atrophy partially imaged. 4. Small 4 cm ascending thoracic aortic aneurysm.
[2020-08-02] MEDS ORDERED: ONDANSETRON HCL INJ/PF 4 MG/2 ML SDV IV PRN (05:30)
[2020-08-02] MEDS ORDERED: ACETAMINOPHEN 325 MG TABLET PO PRN (05:30)
--- NOTE | 2020-08-02 06:10 | PDOC H&P ---
History of Present Illness Patient complains of: Fall History of Present Illness: HENRY BARBER is a 85 year old female with a history of hypertension, hyperlipidemia, hypothyroidism and who was recently diagnosed for dermatomyositis now presents to the ED after sustaining a fall while trying to take a step climb the stair. Patient was seen by rheumatology for dermatomyositis yesterday and shortly after arrival at her home she reports that she fell down after she lost her balance while trying to take a step. She states that she fell backwards and hit her head but denies any loss of consciousness or abnormal body movement. She denies any chest pain, dizziness, shortness of breath before or during the incident. Currently she is being treated for UTI with cefdinir. She denies any fever, chills, nausea, vomiting or any change in her bowel or urinary habits. Past Medical History Cardiac Medical History: Reports: Hyperlipidema, Hypertension Endocrine Medical History: Reports: Hypothyroidism Past Surgical History Past Surgical History: Reports: Hysterectomy - partial Social History Information Source: Patient Lives with: Family Smoking Status: Never Smoker Frequency of Alcohol Use: None Hx Recreational Drug Use: No Drugs: None - Advance Directive Resuscitation Status: Full Code Family History Family History: Reviewed & Not Pertinent Parental Family History Reviewed: Yes Children Family History Reviewed: Yes Sibling(s) Family History Reviewed.: Yes Medication/Allergy Home Medications: Cefdinir 12 ml PO DAILY 08/02/20 Levothyroxine Sodium [Synthroid 0.088 mg Tablet] 88 mcg PO DAILY 08/02/20 Lisinopril [Prinivil] 10 mg PO QHS 08/02/20 Mycophenolate Mofetil 2.5 ml PO DAILY 08/02/20 Prednisone [Deltasone 10 mg Tablet] 10 mg PO BID 08/02/20 Simvastatin [Zocor 10 mg Tablet] 10 mg PO QHS 08/02/20 Allergies/Adverse Reactions: ciprofloxacin [From Cipro] Allergy (Verified 07/28/20 20:22) Review of Systems Constitutional: ABSENT: chills, fever(s), headache(s), weight gain, weight loss Eyes: ABSENT: visual disturbances Ears: ABSENT: hearing changes Cardiovascular: PRESENT: as per HPI. ABSENT: chest pain, dyspnea on exertion, edema, orthropnea, palpitations Respiratory: ABSENT: cough, hemoptysis Gastrointestinal: ABSENT: abdominal pain, constipation, diarrhea, hematemesis, hematochezia, nausea, vomiting Genitourinary: ABSENT: dysuria, hematuria Musculoskeletal: PRESENT: as per HPI, muscle weakness Integumentary: PRESENT: diaphoresis, lesions, rash. ABSENT: pruritus, wounds Neurological: PRESENT: as per HPI Psychiatric: ABSENT: anxiety, depression, homidical ideation, suicidal ideation Endocrine: ABSENT: cold intolerance, heat intolerance, polydipsia, polyuria Hematologic/Lymphatic: ABSENT: easy bleeding, easy bruising Physical Exam Vital Signs: Temp Pulse Resp BP Pulse Ox 97.8 F 14 116/71 95 08/02/20 05:41 08/02/20 05:01 08/02/20 05:00 08/02/20 05:00 Intake & Output 07/31/20 08/01/20 08/02/20 06:59 06:59 06:59 Weight 53.7 kg Additional comments: GENERAL APPEARANCE: Alert and oriented x3, in no acute distress HEENT: Normocephalic and atraumatic. No scleral icterus. Moist oral mucosa NECK: Supple. No lymphadenopathy or tenderness. No JVD CHEST: Symmetric. Nontender to palpation. LUNGS: Clear with good air entry bilaterally. No wheezing or crackles HEART: Regular rate and rhythm with normal S1 and S2. No murmurs, gallops, or rubs. ABDOMEN: soft, active bowel sounds, no direct or rebound tenderness. No organomegaly detected. EXTREMITIES: No cyanosis, clubbing, or edema. MUSCULOSKELETAL: No deformity, atrophy or swelling noted PSYCHIATRIC: Recent and remote memory is intact. Appropriate mood and affect. SKIN: Warm, dry, and well perfused. Has Gottron'spapule on the dorsum of area b ilaterally NEUROLOGIC: Cranial nerves II through XII are grossly intact Power is 3/5 in both lower extremities Has normal muscle tone, no significant atrophy or f asciculations were noted Results Laboratory Results: 08/01/20 22:55 08/01/20 22:55 08/01/20 08/01/20 08/01/20 22:55 22:55 22:55 WBC 9.1 RBC 3.47 L Hgb 10.2 L Hct 30.6 L MCV 88 MCH 29.6 MCHC 33.5 RDW 14.4 H Plt Count 246 Seg Neutrophils % Not Reportable Sodium 135.3 L Potassium 4.3 Chloride 111 H Carbon Dioxide 21 L Anion Gap 3 L BUN 34 H Creatinine 0.98 Est GFR ( Amer) > 60 Glucose 103 Calcium 8.8 Total Bilirubin 0.8 AST 34 Alkaline Phosphatase 33 L Total Protein 5.9 L Albumin 3.1 L TSH 1.24 08/01/20 08/01/20 08/02/20 22:55 22:55 03:23 Creatine Kinase 37 Troponin I 0.102 0.107 Impressions: Cervical Spine CT 08/01/20 00:00 IMPRESSION: Degenerative disc disease and spondylosis. No acute findings. Head CT 08/01/20 00:00 IMPRESSION: NORMAL BRAIN CT WITHOUT CONTRAST. EVIDENCE OF ACUTE STROKE: NO. Chest X-Ray 08/01/20 22:14 IMPRESSION: No evidence of active intrathoracic disease. Chronic change Pelvis X-Ray 08/01/20 22:14 IMPRESSION: No acute displaced fracture is identified. Chest/Abdomen CTA 08/02/20 02:17 IMPRESSION: 1. No evidence of pulmonary embolus. 2. Cholelithiasis. 3. Left renal atrophy partially imaged. 4. Small 4 cm ascending thoracic aortic aneurysm. Assessment and Plan - Diagnosis (1) Frequent falls Is this a current diagnosis for this admission?: Yes Plan: Patient presents after an episode of fall Has been having difficulty with transferring recently Likely due to underlying dermatomyositis Head CT without contrast showed no acute intracranial findings CT neck showed chronic degenerative disc disease but no fracture or dislocation or subluxation noted CTA of chest/abdomen and pelvis also showed no sign of PE, but there was an incidental finding of cholelithiasis and ascending thoracic aortic aneurysm Physical therapy unlikely to benefit at this point Continue treating underlying cause which is dermatomyositis, patient started on mycophenolate and steroids by airplane pilot helper and is going to have first dose today Continue fall precaution Consults with case management for possible home health (2) Elevated troponin Is this a current diagnosis for this admission?: Yes Plan: Likely due to dermatomyositis Troponin on this presentation is 0.102>> 0.107, is lower than troponin level 2 days back which was around 0.6 EKG showed Q waves were seen on the lateral leads Currently patient denies any chest pain, tightness, pressure or shortness of breath Patient has already been seen by cardiology 2 days back and had echocardiography at bedside which showed no wall motion abnormality and elevated troponin is presumed to be due to dermatomyositis. And per cardiology no further cardiac evaluation is needed at this point (3) Dehydration Is this a current diagnosis for this admission?: Yes Plan: Likely due to poor oral intake from dysphagia BUN/creatinine ratio was elevated which 34/0.98 We will hydrate her with LR Continue monitoring volume status (4) Dysphagia Qualifiers: Dysphagia type: unspecified Qualified Code(s): R13.10 - Dysphagia, unspe cified Is this a current diagnosis for this admission?: Yes Plan: Likely due to underlying dermatomyositis Continue treating underlying cause Patient currently started on mycophenolate and steroids Obtain swallow eval to recommend appropriate consistency of diet (5) Dermatomyositis Is this a current diagnosis for this admission?: Yes Plan: Patient was diagnosed in March 2020 Currently presents with falls due to loss of balance and weakness She saw airplane pilot helper on the day of presentation and started on mycophenolate and prednisone Consult with case coordinator for possible arrangement of home health Continue follow-up with rheumatology (6) UTI (urinary tract infection) Qualifiers: Urinary tract infection type: site unspecified Hematuria presence: without hematuria Qualified Code(s): N39.0 - Urinary tract infection, site not specified Is this a current diagnosis for this admission?: Yes Plan: Continue cefdinir (7) Hypertension Is this a current diagnosis for this admission?: Yes Plan: Hold off antihypertensive medication for now due to volume depletion/dehydration - Time Time Spent with patient: 35 or more minutes Total Critical Time (Minutes): 45 Medications reviewed and adjusted accordingly: Yes Anticipated Discharge Disposition: Home with Home Health Anticipated Discharge Timeframe: within 48 hours - Inpatient Certification Based on my medical assessment, after consideration of the patient's comorbidities, presenting symptoms, or acuity I expect that the services needed warrant INPATIENT care.: Yes I certify that my determination is in accordance with my understanding of Medicare's requirements for reasonable and necessary INPATIENT services [42 CFR 412.3e].: Yes Medical Necessity: Significant Comorbidiites Make Outpatient Treatment Too Risky, Need Close Monitoring Due to Risk of Patient Decompensation, Need For IV Fluids, Need For Continuous Telemetry Monitoring Post Hospital Care: D/C or Transfer Summary
[2020-08-02] MEDS ORDERED: ASPIRIN 81 MG TABLET, ENT COATED PO ONE (06:39)
[2020-08-02] MEDS ORDERED: FAMOTIDINE 20 MG TABLET PO SCH (10:00)
[2020-08-02] MEDS ORDERED: PREDNISONE 10 MG TABLET PO SCH (10:00)
[2020-08-02] MEDS ORDERED: MYCOPHENOLATE MOFETIL 250 MG CAPSULE PO SCH (10:00)
--- NOTE | 2020-08-02 11:50 | ST Inp Modified Barium Swallow ---
Medical Diagnosis - Medical Diagnoses Medical Diagnosis Description & ICD-10 Code(s): dysphagia, dermatomyocitis - ICD-10 Tx Diagnosis Coding (1) Dermatomyositis ICD-10 Code(s): M33.90 - DERMATOPOLYMYOSITIS, UNSP, ORGAN INVOLVEMENT UNSPECIFIED (2) Dysphagia ICD-10 Code(s): R13.10 - DYSPHAGIA, UNSPECIFIED ST Inpatient MBS - General Date: 08/02/20 Date of Onset: 07/19/20 - approximate onset - History History Obtained From: Patient, Family Medical History: per EMR: Patient came to the ED on 08/01/20 due to fall at home. Prior medical history includes hypertension, hyperlipidemia, hypothyroidism, and dermatomyositis. Patient is currently on a full liquid diet. per patient/family report: patient reportedly having difficulty with swallowing for approximately 2 weeks, was eating only very soft or pureed foods. Reports feeling "choked" at times, as well as globus sensation. Medications: Medications Reviewed Allergies: Refer to medical record - Subjective Current Nutritional Means: PO Current PO Diet: Thickened liquids - full liquid diet Current Symptoms: Coughing, c/o Globus sensation Pain: Patient reports, 3/5 - chronic throat pain - Objective Assessment: Upright, Left Lateral - Food Trials Food Trials Used: Thin liquids, Honey-thickened liquids, Pureed The Patient: Was Able to Self Feed - Assessment Labial Function: Within Normal Limits Lingual Function: Within Normal Limits Mandibular Function: Within Normal Limits Dentition: Partial Velo-Pharyngeal Function: Unremarkable - Pharyngeal Stage Initiation of Pharyngeal Stage: Normal - occasional mild delay noted, not impacting swallow function Decreased Laryngeal Elevation: Yes Reduced Velo-Pharyngeal Closure: no Reduced Pressure Generation: Yes Reduced Tongue Base Retraction: No Pre-Swallowing Pooling in Valleculae: Mild Reduced Epiglottic Excursion: Yes - significant Multiple Swallows With: Ineffective Clearance Post Swallow Residuals in Valleculae: Significant Post Swallow Residuals in Pyriforms: Moderate Post Swallow Residuals: throughout pharynx - Impression/Summary Laryngeal Penetration: Yes - intermittent penetration of thin liquids noted on the swallow, not passing vocal folds. 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 Recommend compensatory strategies for reduced residue, dysphagia therapy to address improved muscle movement, and medical management of underlying condition of dermatomyocitis. - Time Total Time: 30 Total Timed Minutes: 30
[2020-08-02] MEDS: ASPIRIN 81 MG TABLET, CHEWABLE PO SCH (12:00)
[2020-08-02] MEDS: LISINOPRIL 10 MG TABLET PO SCH (12:00)
[2020-08-02] MEDS: ENOXAPARIN SODIUM INJ 40 MG/0.4 ML DISP.SYRIN SUBCUT SCH (12:02)
--- NOTE | 2020-08-02 13:47 | RADIOLOGY REPORT (SQ) ---
EXAM DESCRIPTION: COOKIE SWALLOW IMAGES COMPLETED DATE/TIME: 08/02/2020 11:27 am REASON FOR STUDY: s/s of aspiration, globus COMPARISON: None. TECHNIQUE: Videofluoroscopic swallowing examination was performed in conjunction with speech patholo gy. Videofluoroscopic imaging was obtained and reviewed and these are the findings: RADIATION DOSE: Fluoro time 4.07 minutes 1 images saved to PACS. LIMITATIONS: None FINDINGS: The patient was brought into the fluoro room and placed upright on a modified barium swall ow chair. The patient was then given multiple consistencies mixed with barium to swallow under live fluoroscopic video guidance. According to the Speech Pathologist there was laryngeal penetration see n with thin barium and from residuals. Thicker consistencies were swallowed without incident. There is diminished epiglottic inversion noted. Please refer to the speech pathology report for further de tails. IMPRESSION: LARYNGEAL PENETRATION WITH THIN BARIUM AND FROM RESIDUALS. PLEASE SEE SPEECH PATHOLOGIST REPORT FOR OTHER FINDINGS AND RECOMMENDATIONS. COMMENT: NONE Quality ID [id number]: Final reports for procedures using fluoroscopy that document radiation exposure kemal rashida, or exposure time and number of fluorographic images (if radiation exposure indices are not avail able) TECHNICAL DOCUMENTATION: JOB ID: [id number] 2010 [employer]- All Rights Reserved Reading location - IP/workstation name: [email or web address]
[2020-08-02] MEDS: METHYLPREDNISOLONE INJ 125 MG/2 ML SDV IV SCH ×2 (14:09→21:10)
--- NOTE | 2020-08-02 16:17 | RADIOLOGY REPORT (SQ) ---
EXAM DESCRIPTION: U/S NON OB PEL W/DOPPLER IMAGES COMPLETED DATE/TIME: 08/02/2020 3:26 pm REASON FOR STUDY: searching for ? occult malignancy COMPARISON: None. TECHNIQUE: Dynamic and static grayscale images acquired of the pelvis via transabdominal approach an d recorded on PACS. Additional selected color Doppler and spectral images recorded. LIMITATIONS: None. FINDINGS: UTERUS: Hypoechoic irregular area within the region of the uterus measuring 6.8 x 5.3 x 3. 7 cm. However, patient reportedly status post partial hysterectomy. ENDOMETRIAL STRIPE: No focal or generalized thickening. No masses. CERVIX: No nabothian cysts. RIGHT OVARY AND DOPPLER: Unremarkable in size measure 1.3 x 1.1 x 0.7 cm. . No worrisome masses. Nor mal arterial vascular flow without evidence for torsion. LEFT OVARY AND DOPPLER: Nonvisualized. FREE FLUID: None noted. OTHER: No other significant finding. IMPRESSION: 1. Irregular hypoechoic area within the region of the uterus measuring 6.8 x 5.3 x 3.7 cm, possibly uterus although patient reportedly status post partial hysterectomy. Recommend correlat ion with surgical history and physical exam. CT could be considered for further characterization. 2. Unremarkable right ovary. Left ovary nonvisualized. TECHNICAL DOCUMENTATION: JOB ID: [id number] 2010 [employer]- All Rights Reserved Reading location - IP/workstation name: [email or web address]
--- NOTE | 2020-08-02 17:47 | Progress Note ---
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 She and her daughter tell me that she has been profoundly weak for months - this is a chronic issue and not acutely different. However, recently, weakness has progressed to the point that she has now developed difficulty swallowing. She was seen by her cattle tester (Dr. Bandar Yeung, phone: [phone]) yesterday and he told her that she likely has an occult, undiagnosed malignancy. I spoke with him today, and he would like to pursue imaging of her chest/abdomen/pelvis. She already had a chest/abdomen CT in the ED which did not show anything, so will order pelvic US. He is concerned that she has already lost about 50% of her body's muscle mass, her illness is very severe (hence, her dysphagia), and he has begun the process of getting prior auth for IVIG therapy as outpatient. Dr. Yeung recommends to start Solu-Medrol pulse dose steroids x3 days. JANITORIAL MAINTENANCE WORKER evaluation and MBBS performed today. She has overt aspiration. Diet changes made. Aspiration precautions. She will need outpatient JANITORIAL MAINTENANCE WORKER therapy on discharge. PT/OT evaluations pending. Fall precautions in place. She will benefit from home healthcare on discharge. Pelvic US concerning for possible mass. She is s/p hysterectomy, so the mass may be due to a previously undiagnosed ovarian mass? She just had a CT chest/abdomen with IV contrast today, so will plan to get a CT pelvis with contrast tomorrow after some gentle hydration. Finally, she was on oral antibiotics for UTI as outpatient. She has no leukocytosis or urinary symptoms, so will not restart antibiotics at this time. Otherwise, I have restarted her home medications. Her daughter tells me that she has a history of "sundowning" in the hospital and is known to develop delirium/agitation when hospitalized. Will institute delirium precautions. Start Haldol 1 mg PO HS.
--- NOTE | 2020-08-02 19:35 | EKG REPORT ---
SEVERITY:- ABNORMAL ECG - SINUS RHYTHM LEFT AXIS DEVIATION ANTERIOR INFARCT, AGE INDETERMINATE : Confirmed by: Shari Marsh MD 02-Aug-2020 19:34:52
--- NOTE | 2020-08-02 20:30 | RADIOLOGY REPORT (SQ) ---
EXAM DESCRIPTION: US EXTREMITY VEINS BILATERAL COMPLETED DATE/TME: 08/02/2020 17:05 CLINICAL HISTORY: 85 years, Female, ELEVATED D-DIMER COMPARISON: None. FINDINGS: Common femoral, femoral, popliteal, posterior tibial, peroneal veins are patent. IMPRESSION: Negative bilateral lower extremity venous ultrasound.
[2020-08-02] MEDS ORDERED: HALOPERIDOL 0.5 MG TABLET PO ONE (21:00)
[2020-08-02] MEDS: ATORVASTATIN CALCIUM 10 MG TABLET PO SCH (21:10)
[2020-08-02] MEDS: PANTOPRAZOLE SODIUM 40 MG VIAL IV SCH (21:10)
[2020-08-03] MEDS: LEVOTHYROXINE SODIUM 0.088 MG TABLET PO SCH (05:19)
[2020-08-03] MEDS: METHYLPREDNISOLONE INJ 125 MG/2 ML SDV IV SCH ×3 (05:19→22:58)
[2020-08-03] MEDS: RINGERS SOLUTION,LACTATED 1,000 ML IV PRN ×3 (05:19→22:59)
[2020-08-03 05:53] LABS: HEMATOCRIT 30.5 % (36.0-47.0); HEMOGLOBIN 10.4 g/dL (12.0-15.5); MEAN CORPUSCULAR HGB CONC 34.1 g/dL (32.0-36.0); MEAN CORPUSCULAR VOLUME 88 fl (80-97); PLATELET COUNT 224 10^3/uL (150-450); RED BLOOD COUNT 3.47 10^6/uL (3.72-5.28); RED CELL DISTRIBUTION WIDTH 14.3 % (11.5-14.0)
[2020-08-03 05:59] LABS: ANION GAP 7 (5-19); BLOOD UREA NITROGEN 26 mg/dL (7-20); CALCIUM 8.6 mg/dL (8.4-10.2); CARBON DIOXIDE 18 mmol/L (22-30); CHLORIDE 111 mmol/L (98-107); GLUCOSE 138 mg/dL (75-110); POTASSIUM 4.8 mmol/L (3.6-5.0)
[2020-08-03 07:18] LABS: ABSOLUTE LYMPHOCYTES# (MANUAL) 0.4 10^3/uL (0.5-4.7); ABSOLUTE MONOCYTES # (MANUAL) 0.1 10^3/uL (0.1-1.4); BASOPHILS % (MANUAL) 0 % (0-2); EOSINOPHILS % (MANUAL) 0 % (0-6); LYMPHOCYTES % (MANUAL) 6 % (13-45); MONOCYTES % (MANUAL) 1 % (3-13); SEGMENTED NEUTROPHILS % (MAN) 93 % (42-78); TOTAL CELLS COUNTED 100
[2020-08-03 07:19] LABS: ANISOCYTOSIS SLIGHT; OVALOCYTES 1+; PLATELET COMMENT ADEQUATE; POIKILOCYTOSIS SLIGHT; TEAR DROP CELLS SLIGHT; TOXIC GRANULATION 1+
[2020-08-03] MEDS ORDERED: MYCOPHENOLATE MOFETIL 200 MG/ML PO SCH (10:00)
[2020-08-03] MEDS ORDERED: [UNRECOGNIZED DRUG - OTHER] PO SCH (10:00)
[2020-08-03] MEDS: LISINOPRIL 10 MG TABLET PO SCH (10:13)
[2020-08-03] MEDS: ASPIRIN 81 MG TABLET, CHEWABLE PO SCH (10:13)
[2020-08-03] MEDS: PANTOPRAZOLE SODIUM 40 MG VIAL IV SCH ×2 (10:14→22:58)
[2020-08-03] MEDS: ENOXAPARIN SODIUM INJ 40 MG/0.4 ML DISP.SYRIN SUBCUT SCH (10:14)
--- NOTE | 2020-08-03 15:35 | PDOC PROGRESS REPORT ---
Subjective Date:: 08/03/20 Subjective:: As per admitting physician's note HENRY BARBER is a 85 year old female with a history of hypertension, hyperlipidemia, hypothyroidism and who was recently diagnosed for dermatomyositis now presents to the ED after sustaining a fall while trying to take a step climb the stair. Patient was seen by rheumatology for dermatomyositis yesterday and shortly after arrival at her home she reports that she fell down after she lost her balance while trying to take a step. She states that she fell backwards and hit her head but denies any loss of consciousness or abnormal body movement. She denies any chest pain, dizziness, shortness of breath before or during the incident. Currently she is being treated for UTI with cefdinir. She denies any fever, chills, nausea, vomiting or any change in her bowel or urinary habits. 08/03/2020. No acute events overnight. Saw patient this afternoon accompanied by her daughter, does not appear to be in apparent distress, denies any fever, c hills, nausea, vomiting. Patient is status post Modified barium swallow evaluation by speech therapy, recommendation is for full liquid diet. Reason For Visit: ELEVATED TROPONIN,FREQUENT FALL,DYSPHAGIA Physical Exam Vital Signs: Temp Pulse Resp BP Pulse Ox 98.5 F 84 16 118/67 97 08/03/20 11:44 08/03/20 11:44 08/03/20 11:44 08/03/20 11:44 08/03/20 11:44 Intake & Output 08/02/20 08/03/20 08/04/20 06:59 06:59 06:59 Intake Total 520 1476 Output Total 300 Balance 520 1176 Weight 53.7 kg 53.7 kg General appearance: PRESENT: no acute distress, thin Head exam: PRESENT: atraumatic, normocephalic Respiratory exam: PRESENT: clear to auscultation arun. ABSENT: rales, rhonchi, wheezes Cardiovascular exam: PRESENT: RRR. ABSENT: diastolic murmur, rubs, systolic murmur GI/Abdominal exam: PRESENT: normal bowel sounds, soft. ABSENT: distended, guarding, mass, organolmegaly, rebound, tenderness Extremities exam: PRESENT: full ROM - Bilateral hand atrophy, other. ABSENT: calf tenderness, clubbing, pedal edema Neurological exam: PRESENT: alert, awake, oriented to person, oriented to place, oriented to time, oriented to situation, CN II-XII grossly intact. ABSENT: motor sensory deficit Results Laboratory Results: 08/03/20 04:33 08/03/20 04:33 08/03/20 08/03/20 04:33 04:33 WBC 6.0 RBC 3.47 L Hgb 10.4 L Hct 30.5 L MCV 88 MCH 30.0 MCHC 34.1 RDW 14.3 H Plt Count 224 Seg Neutrophils % Not Reportable Sodium 135.8 L Potassium 4.8 Chloride 111 H Carbon Dioxide 18 L Anion Gap 7 BUN 26 H Creatinine 0.99 Est GFR ( Amer) > 60 Glucose 138 H Calcium 8.6 08/01/20 08/01/20 08/02/20 22:55 22:55 03:23 Creatine Kinase 37 Troponin I 0.102 0.107 08/02/20 11:29 Creatine Kinase Troponin I 0.089 Impressions: Cervical Spine CT 08/01/20 00:00 IMPRESSION: Degenerative disc disease and spondylosis. No acute findings. Head CT 08/01/20 00:00 IMPRESSION: NORMAL BRAIN CT WITHOUT CONTRAST. EVIDENCE OF ACUTE STROKE: NO. Chest X-Ray 08/01/20 22:14 IMPRESSION: No evidence of active intrathoracic disease. Chronic change Pelvis X-Ray 08/01/20 22:14 IMPRESSION: No acute displaced fracture is identified. Modified Barium Swallow 08/02/20 00:00 IMPRESSION: LARYNGEAL PENETRATION WITH THIN BARIUM AND FROM RESIDUALS. PLEASE SEE SPEECH PATHOLOGIST REPORT FOR OTHER FINDINGS AND RECOMMENDATIONS. Pelvis Ultrasound 08/02/20 00:00 IMPRESSION: 1. Irregular hypoechoic area within the region of the uterus measuring 6.8 x 5.3 x 3.7 cm, possibly uterus although patient reportedly status post partial hysterectomy. Recommend correlation with surgical history and physical exam. CT could be considered for further characterization. 2. Unremarkable right ovary. Left ovary nonvisualized. Venous Doppler Study 08/02/20 00:00 IMPRESSION: Negative bilateral lower extremity venous ultrasound. Chest/Abdomen CTA 08/02/20 02:17 IMPRESSION: 1. No evidence of pulmonary embolus. 2. Cholelithiasis. 3. Left renal atrophy partially imaged. 4. Small 4 cm ascending thoracic aortic aneurysm. Assessment and Plan - Diagnosis (1) Dermatomyositis Is this a current diagnosis for this admission?: Yes Plan: Patient was diagnosed in March 2020 Presented to ED with falls due to loss of balance and weakness As per previous attending note who talked to Dr. Bandar Yeung patient's community service officer coordinator concern remains for an occult undiagnosed malignancy. Patient is scheduled to receive IVIG as outpatient arranged by her community service officer coordinator. CT chest and abdomen with contrast on ED did not show any acute changes. Pelvic ultrasound was inconclusive. Patient is pending CT abdomen and pelvis with contrast to rule out any occult malignancy. Meanwhile as per her community service officer coordinator recommendation she is to continue Solu- Medrol full dose x3 days and continue with her mycophenolate mofetil. (2) Frequent falls Is this a current diagnosis for this admission?: Yes Plan: Patient presented after an episode of fall Has been having difficulty with transferring recently Likely due to underlying dermatomyositis Head CT without contrast showed no acute intracranial findings CT neck showed chronic degenerative disc disease but no fracture or dislocation or subluxation noted CTA of chest/abdomen and pelvis also showed no sign of PE, but there was an incidental finding of cholelithiasis and ascending thoracic aortic aneurysm Continue treating underlying cause which is dermatomyositis. Continue fall precaution. Consults with case management for possible home health (3) Hypertension Is this a current diagnosis for this admission?: Yes Plan: Normotensive. Euvolemic. Continue current meds. Adjust meds as needed. (4) Dehydration Is this a current diagnosis for this admission?: Yes Plan: Likely due to poor oral intake from dysphagia BUN/creatinine ratio was elevated which 34/0.98 Continue IV fluids. Monitor volume status. (5) Dysphagia Qualifiers: Dysphagia type: unspecified Qualified Code(s): R13.10 - Dysphagia, unspecified Is this a current diagnosis for this admission?: Yes Plan: Likely due to underlying dermatomyositis Status post modified barium swallow. Full liquid diet has been recommended. Continue full liquid diet. 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 Continue treating underlying dermatomyositis. (6) Elevated troponin Is this a current diagnosis for this admission?: Yes Plan: Likely due to dermatomyositis. Denies any anginal symptoms. Denies any history of CAD. 0.102, 0.107, 0.089 respectively EKG showed Q waves were seen on the lateral leads Patient has already been seen by cardiology 2 days back and had echocardiography at bedside which showed no wall motion abnormality and elevated troponin is presumed to be due to dermatomyositis. And per cardiology no further cardiac evaluation is needed at this point (7) UTI (urinary tract infection) Qualifiers: Urinary tract infection type: site unspecified Hematuria presence: without hematuria Qualified Code(s): N39.0 - Urinary tract infection, site not specified Is this a current diagnosis for this admission?: Yes Plan: Likely due to gram-negative rods including E. coli. Continue cefdinir. Follow-up urine cultures. - Time Time Spent with patient: 35 or more minutes Medications reviewed and adjusted accordingly: Yes Anticipated Discharge Disposition: Home with Home Health Anticipated Discharge Timeframe: within 48 hours
[2020-08-03] MEDS ORDERED: DEXTROSE 50%-WATER 25 GM/50 ML DISP.SYRIN IV PRN ×2 (15:45)
[2020-08-03] MEDS ORDERED: DEXTROSE 40% GEL 15 GM TUBE PO PRN ×2 (15:45)
[2020-08-03] MEDS ORDERED: GLUCAGON,HUMAN RECOMB 1 MG INJ IM PRN (15:45)
[2020-08-03] MEDS ORDERED: CEFTRIAXONE 1 GM/D5W RTU 1 GM/50 ML RTUPB IV SCH (16:00)
[2020-08-03] MEDS: INSULIN LISPRO 100 UNIT/ML 3 ML VIAL SUBCUT SCH ×2 (17:02→22:59)
[2020-08-03] MEDS: ATORVASTATIN CALCIUM 10 MG TABLET PO SCH (22:58)
[2020-08-03] MEDS ORDERED: CEFTRIAXONE SODIUM 1,000 MG in DEXTROSE 5%-WATER 50 ML IV ONE (23:30)
[2020-08-04] MEDS: CEFTRIAXONE SODIUM 1,000 MG in DEXTROSE 5%-WATER 50 ML IV SCH ×2 (00:17→18:23)
[2020-08-04 05:17] LABS: HEMATOCRIT 28.7 % (36.0-47.0); HEMOGLOBIN 9.8 g/dL (12.0-15.5); MEAN CORPUSCULAR HEMOGLOBIN 30.3 pg (27.0-33.4); MEAN CORPUSCULAR HGB CONC 34.3 g/dL (32.0-36.0); MEAN CORPUSCULAR VOLUME 89 fl (80-97); PLATELET COUNT 218 10^3/uL (150-450); RED BLOOD COUNT 3.24 10^6/uL (3.72-5.28); RED CELL DISTRIBUTION WIDTH 14.6 % (11.5-14.0); WHITE BLOOD COUNT 8.6 10^3/uL (4.0-10.5)
[2020-08-04 05:43] LABS: ANION GAP 5 (5-19); BLOOD UREA NITROGEN 26 mg/dL (7-20); CALCIUM 8.6 mg/dL (8.4-10.2); CARBON DIOXIDE 21 mmol/L (22-30); CHLORIDE 111 mmol/L (98-107); GLUCOSE 130 mg/dL (75-110); POTASSIUM 4.3 mmol/L (3.6-5.0)
[2020-08-04 05:56] LABS: ABSOLUTE LYMPHOCYTES# (MANUAL) 0.4 10^3/uL (0.5-4.7); ABSOLUTE MONOCYTES # (MANUAL) 0.2 10^3/uL (0.1-1.4); BASOPHILS % (MANUAL) 0 % (0-2); EOSINOPHILS % (MANUAL) 0 % (0-6); LYMPHOCYTES % (MANUAL) 5 % (13-45); MONOCYTES % (MANUAL) 2 % (3-13); SEGMENTED NEUTROPHILS % (MAN) 93 % (42-78); TOTAL CELLS COUNTED 100
[2020-08-04 05:57] LABS: BURR CELLS SLIGHT; OVALOCYTES SLIGHT; PLATELET COMMENT ADEQUATE; POIKILOCYTOSIS SLIGHT
[2020-08-04] MEDS: LEVOTHYROXINE SODIUM 0.088 MG TABLET PO SCH (06:42)
[2020-08-04] MEDS: METHYLPREDNISOLONE INJ 125 MG/2 ML SDV IV SCH ×3 (06:42→23:13)
[2020-08-04] MEDS: INSULIN LISPRO 100 UNIT/ML 3 ML VIAL SUBCUT SCH ×3 (08:34→16:54)
[2020-08-04] MEDS: RINGERS SOLUTION,LACTATED 1,000 ML IV PRN (08:35)
[2020-08-04] MEDS: ENOXAPARIN SODIUM INJ 40 MG/0.4 ML DISP.SYRIN SUBCUT SCH (10:03)
[2020-08-04] MEDS: LISINOPRIL 10 MG TABLET PO SCH (10:03)
[2020-08-04] MEDS: ASPIRIN 81 MG TABLET, CHEWABLE PO SCH (10:03)
[2020-08-04] MEDS: PANTOPRAZOLE SODIUM 40 MG VIAL IV SCH ×2 (10:03→23:13)
--- NOTE | 2020-08-04 13:45 | PDOC PROGRESS REPORT ---
Subjective Date:: 08/04/20 Subjective:: As per admitting physician's note HENRY BARBER is a 85 year old female with a history of hypertension, hyperlipidemia, hypothyroidism and who was recently diagnosed for dermatomyositis now presents to the ED after sustaining a fall while trying to take a step climb the stair. Patient was seen by rheumatology for dermatomyositis yesterday and shortly after arrival at her home she reports that she fell down after she lost her balance while trying to take a step. She states that she fell backwards and hit her head but denies any loss of consciousness or abnormal body movement. She denies any chest pain, dizziness, shortness of breath before or during the incident. Currently she is being treated for UTI with cefdinir. She denies any fever, chills, nausea, vomiting or any change in her bowel or urinary habits. 08/03/2020. No acute events overnight. Saw patient this afternoon accompanied by her daughter, does not appear to be in apparent distress, denies any fever, c hills, nausea, vomiting. Patient is status post Modified barium swallow evaluation by speech therapy, recommendation is for full liquid diet. 08/04/2020. No acute events overnight. Patient comfortably sitting bed no apparent distress, stating that he could not get much sleep, as per daughter who is present in the room stating that patient was confused last night which has happened before when she gets hospitalized, denies any fever, chills, nausea, vomiting. Reason For Visit: ELEVATED TROPONIN,FREQUENT FALL,DYSPHAGIA Physical Exam Vital Signs: Temp Pulse Resp BP Pulse Ox 98.2 F 97 15 122/64 97 08/04/20 11:31 08/04/20 11:31 08/04/20 11:31 08/04/20 11:31 08/04/20 11:31 Intake & Output 08/03/20 08/04/20 08/05/20 06:59 06:59 06:59 Intake Total 520 2956 1120 Output Total 1100 700 Balance 520 1856 420 Weight 53.7 kg 53 kg General appearance: PRESENT: no acute distress, thin Head exam: PRESENT: atraumatic, normocephalic, other - Severe hair thinning Respiratory exam: PRESENT: clear to auscultation arun. ABSENT: rales, rhonchi, wheezes Cardiovascular exam: PRESENT: RRR. ABSENT: diastolic murmur, rubs, systolic murmur GI/Abdominal exam: PRESENT: normal bowel sounds, soft. ABSENT: distended, guarding, mass, organolmegaly, rebound, tenderness Extremities exam: PRESENT: full ROM, other - Diffuse atrophy is of upper and lower extremities.. ABSENT: calf tenderness, clubbing, pedal edema Neurological exam: PRESENT: alert, awake, oriented to person, oriented to place, oriented to time, oriented to situation, CN II-XII grossly intact. ABSENT: motor sensory deficit Results Laboratory Results: 08/04/20 04:26 08/04/20 04:26 08/04/20 08/04/20 04:26 04:26 WBC 8.6 RBC 3.24 L Hgb 9.8 L Hct 28.7 L MCV 89 MCH 30.3 MCHC 34.3 RDW 14.6 H Plt Count 218 Seg Neutrophils % Not Reportable Sodium 136.5 L Potassium 4.3 Chloride 111 H Carbon Dioxide 21 L Anion Gap 5 BUN 26 H Creatinine 1.01 Est GFR ( Amer) > 60 Glucose 130 H Calcium 8.6 08/01/20 08/01/20 08/02/20 22:55 22:55 03:23 Creatine Kinase 37 Troponin I 0.102 0.107 08/02/20 11:29 Creatine Kinase Troponin I 0.089 Impressions: Cervical Spine CT 08/01/20 00:00 IMPRESSION: Degenerative disc disease and spondylosis. No acute findings. Head CT 08/01/20 00:00 IMPRESSION: NORMAL BRAIN CT WITHOUT CONTRAST. EVIDENCE OF ACUTE STROKE: NO. Chest X-Ray 08/01/20 22:14 IMPRESSION: No evidence of active intrathoracic disease. Chronic change Pelvis X-Ray 08/01/20 22:14 IMPRESSION: No acute displaced fracture is identified. Modified Barium Swallow 08/02/20 00:00 IMPRESSION: LARYNGEAL PENETRATION WITH THIN BARIUM AND FROM RESIDUALS. PLEASE SEE SPEECH PATHOLOGIST REPORT FOR OTHER FINDINGS AND RECOMMENDATIONS. Pelvis Ultrasound 08/02/20 00:00 IMPRESSION: 1. Irregular hypoechoic area within the region of the uterus measuring 6.8 x 5.3 x 3.7 cm, possibly uterus although patient reportedly status post partial hysterectomy. Recommend correlation with surgical history and physical exam. CT could be considered for further characterization. 2. Unremarkable right ovary. Left ovary nonvisualized. Venous Doppler Study 08/02/20 00:00 IMPRESSION: Negative bilateral lower extremity venous ultrasound. Chest/Abdomen CTA 08/02/20 02:17 IMPRESSION: 1. No evidence of pulmonary embolus. 2. Cholelithiasis. 3. Left renal atrophy partially imaged. 4. Small 4 cm ascending thoracic aortic aneurysm. Assessment and Plan - Diagnosis (1) Dermatomyositis Is this a current diagnosis for this admission?: Yes Plan: Patient was diagnosed in March 2020 Presented to ED with falls due to loss of balance and weakness As per previous attending note who talked to Dr. Bandar Yeung patient's physician practice administrator concern remains for an occult undiagnosed malignancy. Patient is scheduled to receive IVIG as outpatient arranged by her physician practice administrator. CT chest and abdomen with contrast on ED did not show any acute changes. Pelvic ultrasound was inconclusive. Patient is pending CT abdomen and pelvis with contrast to rule out any occult malignancy. Meanwhile as per her physician practice administrator recommendation she is to continue Solu- Medrol full dose x3 days and continue with her mycophenolate mofetil. (2) Frequent falls Is this a current diagnosis for this admission?: Yes Plan: Patient presented after an episode of fall Has been having difficulty with transferring recently Likely due to underlying dermatomyositis Head CT without contrast showed no acute intracranial findings CT neck showed chronic degenerative disc disease but no fracture or dislocation or subluxation noted CTA of chest/abdomen and pelvis also showed no sign of PE, but there was an incidental finding of cholelithiasis and ascending thoracic aortic aneurysm Continue treating underlying cause which is dermatomyositis. Continue fall precaution. Consults with case management for possible home health (3) Hypertension Is this a current diagnosis for this admission?: Yes Plan: Normotensive. Euvolemic. Continue current meds. Adjust meds as needed. (4) Dehydration Is this a current diagnosis for this admission?: Yes Plan: Likely due to poor oral intake from dysphagia BUN/creatinine ratio was elevated which 34/0.98 Continue IV fluids. Monitor volume status. (5) Dysphagia Qualifiers: Dysphagia type: unspecified Qualified Code(s): R13.10 - Dysphagia, unspecified Is this a current diagnosis for this admission?: Yes Plan: Likely due to underlying dermatomyositis Status post modified barium swallow. Full liquid diet has been recommended. Continue full liquid diet. 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 Continue treating underlying dermatomyositis. (6) Elevated troponin Is this a current diagnosis for this admission?: Yes Plan: Likely due to dermatomyositis. Denies any anginal symptoms. Denies any history of CAD. 0.102, 0.107, 0.089 respectively EKG showed Q waves were seen on the lateral leads Patient has already been seen by cardiology 2 days back and had echocardiography at bedside which showed no wall motion abnormality and elevated troponin is presumed to be due to dermatomyositis. And per cardiology no further cardiac evaluation is needed at this point (7) UTI (urinary tract infection) Qualifiers: Urinary tract infection type: site unspecified Hematuria presence: without hematuria Qualified Code(s): N39.0 - Urinary tract infection, site not specified Is this a current diagnosis for this admission?: Yes Plan: Likely due to gram-negative rods including E. coli. Day 2 IV ceftriaxone. Follow-up urine cultures. (8) Anemia of chronic disease Is this a current diagnosis for this admission?: Yes Plan: Normocytic anemia. Likely due to underlying chronic inflammatory process. Denies any hematemesis, hemoptysis, easy bleeding, vaginal bleeding, melena or hematochezia. H&H is stable. Monitor H&H. Treat underlying chronic disease. - Time Time Spent with patient: 35 or more minutes Anticipated Discharge Disposition: Home with Home Health Anticipated Discharge Timeframe: within 24 hours
--- NOTE | 2020-08-04 19:28 | RADIOLOGY REPORT (SQ) ---
EXAM DESCRIPTION: CT ABD/PELVIS WITH IV ONLY IMAGES COMPLETED DATE/TIME: 08/04/2020 5:52 pm REASON FOR STUDY: abnormal abdominal US COMPARISON: Pelvic ultrasound 08/02/2020 CT angio chest 08/02/2020 TECHNIQUE: CT scan of the abdomen and pelvis performed using helical scanning technique with dynamic intravenous contrast injection. Patient drank oral contrast. Images reviewed with lung, soft tissue , and bone windows. Reconstructed coronal and sagittal MPR images reviewed. Delayed images for evalua tion of the urinary system also acquired. All images stored on PACS. All CT scanners at this facility use dose modulation, iterative reconstruction, and/or weight based d osing when appropriate to reduce radiation dose to as low as reasonably achievable (ALARA). [facility]: Dose Right [facility]: CareDose [facility]: Dose Right [facility]: Teradose 4D [facility]: Screaming Sports CONTRAST TYPE AND DOSE: contrast/concentration: Isovue 350.00 mmol/ml; Total Contrast Delivered: 60. 9 ml; Total Saline Delivered: 65.0 ml RENAL FUNCTION: Creatinine 1.0 RADIATION DOSE: CT Rad equipment meets quality standard of care and radiation dose reduction techniq ues were employed. CTDIvol: 5.1 - 6.4 mGy. DLP: 599 mGy-cm.. LIMITATIONS: None. FINDINGS: LOWER CHEST: No significant findings. No nodules or infiltrates. LIVER: Normal size. No masses. No dilated ducts. SPLEEN: Normal size. No focal lesions. PANCREAS: No masses. No significant calcifications. No adjacent inflammation or peripancreatic fluid collections. Pancreatic duct not dilated. GALLBLADDER: Gallstones. No inflammatory changes to suggest cholecystitis. ADRENAL GLANDS: No significant masses or asymmetry. RIGHT KIDNEY AND URETER: No solid masses. Multiple right renal cortical cysts. No significant calci fications. No hydronephrosis or hydroureter. LEFT KIDNEY AND URETER: No solid masses. Multiple left renal cortical cysts. No significant calcifi cations. No hydronephrosis or hydroureter. AORTA AND VESSELS: No aneurysm. No dissection. Renal arteries, SMA, celiac without stenosis. RETROPERITONEUM: No retroperitoneal adenopathy, hemorrhage or masses. BOWEL AND PERITONEAL CAVITY: No masses or inflammatory changes. No free fluid or peritoneal masses. APPENDIX: Not visualized PELVIS: Post hysterectomy. Findings on prior ultrasound likely represents the rectosigmoid colon. N o mass. No free fluid. Normal bladder. ABDOMINAL WALL: No masses. No hernias. BONES: Chronic appearing mild upper endplate T12 compression. OTHER: No other significant finding. IMPRESSION: NO SIGNIFICANT OR ACUTE FINDING IN THE ABDOMEN OR PELVIS ON CT SCAN WITH IV CONTRAST. TECHNICAL DOCUMENTATION: JOB ID: [id number] Quality ID # [id number]: Final reports with documentation of one or more dose reduction techniques (e.g., Au tomated exposure control, adjustment of the mA and/or kV according to patient size, use of iterative reconstruction technique) 2010 [employer]- All Rights Reserved Reading location - IP/workstation name: [id number]
[2020-08-04] MEDS: ATORVASTATIN CALCIUM 10 MG TABLET PO SCH (23:12)
[2020-08-04] MEDS: TEMAZEPAM 15 MG CAPSULE PO SCH ×2 (23:13→23:44)
[2020-08-05] MEDS: INSULIN LISPRO 100 UNIT/ML 3 ML VIAL SUBCUT SCH ×5 (02:16→21:15)
[2020-08-05] MEDS: LEVOTHYROXINE SODIUM 0.088 MG TABLET PO SCH (05:36)
[2020-08-05] MEDS: METHYLPREDNISOLONE INJ 125 MG/2 ML SDV IV SCH (05:36)
[2020-08-05] MEDS: LISINOPRIL 10 MG TABLET PO SCH (09:31)
[2020-08-05] MEDS: PANTOPRAZOLE SODIUM 40 MG VIAL IV SCH (09:32)
[2020-08-05] MEDS: ASPIRIN 81 MG TABLET, CHEWABLE PO SCH (09:32)
[2020-08-05] MEDS: ENOXAPARIN SODIUM INJ 40 MG/0.4 ML DISP.SYRIN SUBCUT SCH (09:33)
--- NOTE | 2020-08-05 16:59 | PDOC PROGRESS REPORT ---
Subjective Date:: 08/05/20 Subjective:: As per admitting physician's note HENRY BARBER is a 85 year old female with a history of hypertension, hyperlipidemia, hypothyroidism and who was recently diagnosed for dermatomyositis now presents to the ED after sustaining a fall while trying to take a step climb the stair. Patient was seen by rheumatology for dermatomyositis yesterday and shortly after arrival at her home she reports that she fell down after she lost her balance while trying to take a step. She states that she fell backwards and hit her head but denies any loss of consciousness or abnormal body movement. She denies any chest pain, dizziness, shortness of breath before or during the incident. Currently she is being treated for UTI with cefdinir. She denies any fever, chills, nausea, vomiting or any change in her bowel or urinary habits. 08/03/2020. No acute events overnight. Saw patient this afternoon accompanied by her daughter, does not appear to be in apparent distress, denies any fever, c hills, nausea, vomiting. Patient is status post Modified barium swallow evaluation by speech therapy, recommendation is for full liquid diet. 08/04/2020. No acute events overnight. Patient comfortably sitting bed no apparent distress, stating that he could not get much sleep, as per daughter who is present in the room stating that patient was confused last night which has happened before when she gets hospitalized, denies any fever, chills, nausea, vomiting. 08/05/2020. No acute events overnight. Patient has received 9 doses off high- dose IV steroids and her CT scan has been done however family has appealed discharge as they cannot take care of her mother at home and they would like to average home health home care and PCP before taking her mother home. Reason For Visit: ELEVATED TROPONIN,FREQUENT FALL,DYSPHAGIA Physical Exam Vital Signs: Temp Pulse Resp BP Pulse Ox 97.9 F 81 18 124/56 L 96 08/05/20 14:59 08/05/20 14:59 08/05/20 14:59 08/05/20 14:59 08/05/20 14:59 Intake & Output 08/04/20 08/05/20 08/06/20 06:59 06:59 06:59 Intake Total 2956 1480 420 Output Total 1100 1250 400 Balance 1856 230 20 Weight 53 kg 53 kg General appearance: PRESENT: no acute distress, thin Head exam: PRESENT: atraumatic, normocephalic Respiratory exam: PRESENT: clear to auscultation arun. ABSENT: rales, rhonchi, wheezes Cardiovascular exam: PRESENT: RRR. ABSENT: diastolic murmur, rubs, systolic murmur GI/Abdominal exam: PRESENT: normal bowel sounds, soft. ABSENT: distended, guarding, mass, organolmegaly, rebound, tenderness Extremities exam: PRESENT: full ROM. ABSENT: calf tenderness, clubbing, pedal edema Musculoskeletal exam: PRESENT: other - Diffuse musculoskeletal hypertrophy. Neurological exam: PRESENT: alert, awake, oriented to person, oriented to place, CN II-XII grossly intact. ABSENT: motor sensory deficit Results Laboratory Results: 08/04/20 04:26 08/04/20 04:26 08/03/20 18:35 Clean Catch Midstream Urine Culture - Final NO GROWTH 2 DAYS 08/01/20 08/01/20 08/02/20 22:55 22:55 03:23 Creatine Kinase 37 Troponin I 0.102 0.107 08/02/20 11:29 Creatine Kinase Troponin I 0.089 Impressions: Cervical Spine CT 08/01/20 00:00 IMPRESSION: Degenerative disc disease and spondylosis. No acute findings. Head CT 08/01/20 00:00 IMPRESSION: NORMAL BRAIN CT WITHOUT CONTRAST. EVIDENCE OF ACUTE STROKE: NO. Chest X-Ray 08/01/20 22:14 IMPRESSION: No evidence of active intrathoracic disease. Chronic change Pelvis X-Ray 08/01/20 22:14 IMPRESSION: No acute displaced fracture is identified. Modified Barium Swallow 08/02/20 00:00 IMPRESSION: LARYNGEAL PENETRATION WITH THIN BARIUM AND FROM RESIDUALS. PLEASE SEE SPEECH PATHOLOGIST REPORT FOR OTHER FINDINGS AND RECOMMENDATIONS. Pelvis Ultrasound 08/02/20 00:00 IMPRESSION: 1. Irregular hypoechoic area within the region of the uterus measuring 6.8 x 5.3 x 3.7 cm, possibly uterus although patient reportedly status post partial hysterectomy. Recommend correlation with surgical history and physical exam. CT could be considered for further characterization. 2. Unremarkable right ovary. Left ovary nonvisualized. Venous Doppler Study 08/02/20 00:00 IMPRESSION: Negative bilateral lower extremity venous ultrasound. Chest/Abdomen CTA 08/02/20 02:17 IMPRESSION: 1. No evidence of pulmonary embolus. 2. Cholelithiasis. 3. Left renal atrophy partially imaged. 4. Small 4 cm ascending thoracic aortic aneurysm. Abdomen/Pelvis CT 08/04/20 11:06 IMPRESSION: NO SIGNIFICANT OR ACUTE FINDING IN THE ABDOMEN OR PELVIS ON CT SCAN WITH IV CONTRAST. Assessment and Plan - Diagnosis (1) Dermatomyositis Is this a current diagnosis for this admission?: Yes Plan: Patient was diagnosed in March 2020 Presented to ED with falls due to loss of balance and weakness As per previous attending note who talked to Dr. Bandar Yeung patient's social work lecturer concern remains for an occult undiagnosed malignancy. Patient is scheduled to receive IVIG as outpatient arranged by her social work lecturer. CT chest and abdomen with contrast on ED did not show any acute changes. Pelvic ultrasound was inconclusive. Patient is pending CT abdomen and pelvis with contrast to rule out any occult malignancy. She has received continue Solu-Medrol full dose x3 days as per her social work lecturer recommendation. Continue mycophenolate mofetil. Continue home steroids. Patient ready to be discharged to receive her IVIG arranged by her social work lecturer. Currently patient family is appealing her discharge. Please refer to catalytic case operator notes. (2) Frequent falls Is this a current diagnosis for this admission?: Yes Plan: Patient presented after an episode of fall Has been having difficulty with transferring recently Likely due to underlying dermatomyositis Head CT without contrast showed no acute intracranial findings CT neck showed chronic degenerative disc disease but no fracture or dislocation or subluxation noted CTA of chest/abdomen and pelvis also showed no sign of PE, but there was an incidental finding of cholelithiasis and ascending thoracic aortic aneurysm Continue treating underlying cause which is dermatomyositis. Continue fall precaution. Consults with case management for possible home health (3) Hypertension Is this a current diagnosis for this admission?: Yes Plan: Normotensive. Euvolemic. Continue current meds. Adjust meds as needed. (4) Dehydration Is this a current diagnosis for this admission?: Yes Plan: Likely due to poor oral intake from dysphagia BUN/creatinine ratio was elevated which 34/0.98 Continue IV fluids. Monitor volume status. (5) Dysphagia Qualifiers: Dysphagia type: unspecified Qualified Code(s): R13.10 - Dysphagia, unspecified Is this a current diagnosis for this admission?: Yes Plan: Likely due to underlying dermatomyositis Status post modified barium swallow. Full liquid diet has been recommended. Continue full liquid diet. Outpatient COMPUTATIONAL CHEMIST. Continue treating underlying dermatomyositis. (6) Elevated troponin Is this a current diagnosis for this admission?: Yes Plan: Likely due to dermatomyositis. Denies any anginal symptoms. Denies any history of CAD. 0.102, 0.107, 0.089 respectively EKG showed Q waves were seen on the lateral leads Patient has already been seen by cardiology 2 days back and had echocardiography at bedside which showed no wall motion abnormality and elevated troponin is presumed to be due to dermatomyositis. And per cardiology no further cardiac evaluation is needed at this point (7) UTI (urinary tract infection) Qualifiers: Urinary tract infection type: site unspecified Hematuria presence: without hematuria Qualified Code(s): N39.0 - Urinary tract infection, site not specified Is this a current diagnosis for this admission?: Yes Plan: Likely due to gram-negative rods including E. coli. Asymptomatic. Completed 3 days of IV ceftriaxone. (8) Anemia of chronic disease Is this a current diagnosis for this admission?: Yes Plan: Normocytic anemia. Likely due to underlying chronic inflammatory process. Denies any hematemesis, hemoptysis, easy bleeding, vaginal bleeding, melena or hematochezia. H&H is stable. Monitor H&H. Treat underlying chronic disease. - Time Time Spent with patient: 35 or more minutes Anticipated Discharge Disposition: Home with Home Health Anticipated Discharge Timeframe: when bed available
[2020-08-05] MEDS: ATORVASTATIN CALCIUM 10 MG TABLET PO SCH (21:50)
[2020-08-05] MEDS: TEMAZEPAM 15 MG CAPSULE PO SCH (21:50)
[2020-08-06] MEDS: RINGERS SOLUTION,LACTATED 1,000 ML IV PRN (03:40)
[2020-08-06] MEDS: LEVOTHYROXINE SODIUM 0.088 MG TABLET PO SCH (05:04)
[2020-08-06] MEDS ORDERED: PREDNISONE 10 MG TABLET PO SCH (08:00)
[2020-08-06 08:15] VITALS: BP 124/72
[2020-08-06] MEDS: ASPIRIN 81 MG TABLET, CHEWABLE PO SCH (10:46)
[2020-08-06] MEDS: LISINOPRIL 10 MG TABLET PO SCH (10:46)
[2020-08-06] MEDS: ENOXAPARIN SODIUM INJ 40 MG/0.4 ML DISP.SYRIN SUBCUT SCH (10:47)
--- NOTE | 2020-08-06 13:05 | PDOC DISCHARGE SUMMARY ---
Impression - Admit/DC Date/PCP Admission Date/Primary Care Provider: 08/02/20 05:40 Discharge Date: 08/06/20 - Discharge Diagnosis (1) Dermatomyositis Is this a current diagnosis for this admission?: Yes (2) Frequent falls Is this a current diagnosis for this admission?: Yes (3) Hypertension Is this a current diagnosis for this admission?: Yes (4) Dehydration Is this a current diagnosis for this admission?: Yes (5) Dysphagia Is this a current diagnosis for this admission?: Yes (6) Elevated troponin Is this a current diagnosis for this admission?: Yes (7) UTI (urinary tract infection) Is this a current diagnosis for this admission?: Yes (8) Anemia of chronic disease Is this a current diagnosis for this admission?: Yes - Additional Information Resuscitation Status: Full Code Referrals: KUNAL BOOKER MD [ACTIVE STAFF] - 08/08/20 11:30 am Home Medications: Mycophenolate Mofetil 2.5 ml PO Q12 08/02/20 Prednisone [Deltasone 10 mg Tablet] 10 mg PO BID 08/02/20 History of Present Illiness History of Present Illness: As per admitting physician's note HENRY BARBER is a 85 year old female with a history of hypertension, hyperlipidemia, hypothyroidism and who was recently diagnosed for dermatomyositis now presents to the ED after sustaining a fall while trying to take a step climb the stair. Patient was seen by rheumatology for dermatomyositis yesterday and shortly after arrival at her home she reports that she fell down after she lost her balance while trying to take a step. She states that she fell backwards and hit her head but denies any loss of conscious ness or abnormal body movement. She denies any chest pain, dizziness, shortness of breath before or during the incident. Currently she is being treated for UTI with cefdinir. She denies any fever, chills, nausea, vomiting or any change in her bowel or urinary habits. Hospital Course Hospital Course: (1) Dermatomyositis Patient was diagnosed in March 2020 Presented to ED with falls due to loss of balance and weakness As per previous attending note who talked to Dr. Kunal Yeung patient's ctc operator concern remains for an occult undiagnosed malignancy. Patient is scheduled to receive IVIG as outpatient arranged by her ctc operator. CT chest and abdomen with contrast on ED did not show any acute changes. Pelvic ultrasound was inconclusive. Patient is pending CT abdomen and pelvis with contrast to rule out any occult malignancy. She has received continue Solu-Medrol full dose x3 days as per her ctc operator recommendation. Continue mycophenolate mofetil. Continue home steroids. Patient ready to be discharged to receive her IVIG arranged by her ctc operator. Patient was discharged with home health, home PT/OT and ST. (2) Frequent falls Patient presented after an episode of fall Has been having difficulty with transferring recently Likely due to underlying dermatomyositis Head CT without contrast showed no acute intracranial findings CT neck showed chronic degenerative disc disease but no fracture or dislocation or subluxation noted CTA of chest/abdomen and pelvis also showed no sign of PE, but there was an incidental finding of cholelithiasis and ascending thoracic aortic aneurysm Continue treating underlying cause which is dermatomyositis. Continue fall precaution. Was discharged with home health, PT/OT (3) Hypertension Normotensive. Euvolemic. Continue current meds. Adjust meds as needed. (4) Dehydration Likely due to poor oral intake from dysphagia BUN/creatinine ratio was elevated which 34/0.98 Continue IV fluids. Monitor volume status. (5) Dysphagia Likely due to underlying dermatomyositis Status post modified barium swallow. Full liquid diet has been recommended. Continue full liquid diet. Outpatient INFORMATION TECHNOLOGY ADVISOR. Continue treating underlying dermatomyositis. Discharged home with home ST (6) Elevated troponin Likely due to dermatomyositis. Denied any anginal symptoms. Denies any history of CAD. 0.102, 0.107, 0.089 respectively EKG showed Q waves were seen on the lateral leads Patient has already been seen by cardiology 2 days back and had echocardiography at bedside which showed no wall motion abnormality and elevated troponin is presumed to be due to dermatomyositis. And per cardiology no further cardiac evaluation is needed at this point Please refer to Dr. Khadar [place] accelerator operator note. (7) UTI (urinary tract infection) Likely due to gram-negative rods including E. coli. Asymptomatic. Completed 3 days of IV ceftriaxone. (8) Anemia of chronic disease Normocytic anemia. Likely due to underlying chronic inflammatory process. Denies any hematemesis, hemoptysis, easy bleeding, vaginal bleeding, melena or hematochezia. H&H is stable. Monitor H&H. Treat underlying chronic disease. Physical Exam Vital Signs: Temp Pulse Resp BP Pulse Ox 98.0 F 79 18 124/72 100 08/06/20 10:00 08/06/20 07:11 08/06/20 07:11 08/06/20 07:11 08/06/20 07:11 Intake & Output 08/05/20 08/06/20 08/07/20 06:59 06:59 06:59 Intake Total 2480 1150 Output Total 1250 800 Balance 1230 350 Weight 53 kg 57.4 kg General appearance: PRESENT: no acute distress, thin Head exam: PRESENT: atraumatic, normocephalic Neck exam: ABSENT: carotid bruit, JVD, lymphadenopathy, thyromegaly Respiratory exam: PRESENT: clear to auscultation arun. ABSENT: rales, rhonchi, wheezes GI/Abdominal exam: PRESENT: normal bowel sounds, soft. ABSENT: distended, guarding, mass, organolmegaly, rebound, tenderness Extremities exam: PRESENT: full ROM. ABSENT: calf tenderness, clubbing, pedal edema Musculoskeletal exam: PRESENT: other - Diffuse musculoskeletal atrophy. Neurological exam: PRESENT: alert, awake, oriented to person, oriented to place, oriented to time, oriented to situation, CN II-XII grossly intact. ABSENT: motor sensory deficit Results Laboratory Results: WBC 8.6 10^3/uL (4.0-10.5) 08/04/20 04:26 RBC 3.24 10^6/uL (3.72-5.28) L 08/04/20 04:26 Hgb 9.8 g/dL (12.0-15.5) L 08/04/20 04:26 Hct 28.7 % (36.0-47.0) L 08/04/20 04:26 MCV 89 fl (80-97) 08/04/20 04:26 MCH 30.3 pg (27.0-33.4) 08/04/20 04:26 MCHC 34.3 g/dL (32.0-36.0) 08/04/20 04:26 RDW 14.6 % (11.5-14.0) H 08/04/20 04:26 Plt Count 218 10^3/uL (150-450) 08/04/20 04:26 Lymph % (Auto) Not Reportable 08/04/20 04:26 [place] % (Auto) Not Reportable 08/04/20 04:26 Eos % (Auto) Not Reportable 08/04/20 04:26 Baso % (Auto) Not Reportable 08/04/20 04:26 Absolute Neuts (auto) Not Reportable 08/04/20 04:26 Absolute Lymphs (auto) Not Reportable 08/04/20 04:26 Absolute Monos (auto) Not Reportable 08/04/20 04:26 Absolute Eos (auto) Not Reportable 08/04/20 04:26 Absolute Basos (auto) Not Reportable 08/04/20 04:26 Total Counted 100 08/04/20 04:26 Seg Neutrophils % Not Reportable 08/04/20 04:26 Seg Neuts % (Manual) 93 % (42-78) H 08/04/20 04:26 Lymphocytes % (Manual) 5 % (13-45) L 08/04/20 04:26 Monocytes % (Manual) 2 % (3-13) L 08/04/20 04:26 Eosinophils % (Manual) 0 % (0-6) 08/04/20 04:26 Basophils % (Manual) 0 % (0-2) 08/04/20 04:26 Abs Neuts (Manual) 8.0 10^3/uL (1.7-8.2) 08/04/20 04:26 Abs Lymphs (Manual) 0.4 10^3/uL (0.5-4.7) L 08/04/20 04:26 Abs Monocytes (Manual) 0.2 10^3/uL (0.1-1.4) 08/04/20 04:26 Absolute Eos (Manual) 0.0 10^3/uL (0.0-0.6) 08/04/20 04:26 Abs Basophils (Manual) 0.0 10^3/uL (0.0-0.2) 08/04/20 04:26 Toxic Granulation 1+ 08/03/20 04:33 Toxic Vacuolation PRESENT 08/01/20 22:55 Platelet Comment ADEQUATE 08/04/20 04:26 Poikilocytosis SLIGHT 08/04/20 04:26 Anisocytosis SLIGHT 08/03/20 04:33 Tear Drop Cells SLIGHT 08/03/20 04:33 Ovalocytes SLIGHT 08/04/20 04:26 [place] Cells SLIGHT 08/04/20 04:26 D-Dimer 2.33 ug/mL (0.00-0.50) H 08/01/20 22:55 Sodium 136.5 mmol/L (137-145) L 08/04/20 04:26 Potassium 4.3 mmol/L (3.6-5.0) 08/04/20 04:26 Chloride 111 mmol/L (98-107) H 08/04/20 04:26 Carbon Dioxide 21 mmol/L (22-30) L 08/04/20 04:26 Anion Gap 5 (5-19) 08/04/20 04:26 BUN 26 mg/dL (7-20) H 08/04/20 04:26 Creatinine 1.01 mg/dL (0.52-1.25) 08/04/20 04:26 Est GFR ( Amer) > 60 (>60) 08/04/20 04:26 Est GFR (MDRD) Non-Af 52 (>60) L 08/04/20 04:26 Glucose 130 mg/dL (75-110) H 08/04/20 04:26 POC Glucose 95 mg/dL (70-110) 08/06/20 06:03 Calcium 8.6 mg/dL (8.4-10.2) 08/04/20 04:26 Total Bilirubin 0.8 mg/dL (0.2-1.3) 08/01/20 22:55 Direct Bilirubin 0.2 mg/dL (0.0-0.4) 08/01/20 22:55 Neonat Total Bilirubin Not Reportable 08/01/20 22:55 Neonat Direct Bilirubin Not Reportable 08/01/20 22:55 Neonat Indirect Bili Not Reportable 08/01/20 22:55 AST 34 U/L (14-36) 08/01/20 22:55 ALT 21 U/L (<35) 08/01/20 22:55 Alkaline Phosphatase 33 U/L (38-126) L 08/01/20 22:55 Creatine Kinase 37 U/L (30-135) 08/01/20 22:55 Troponin I 0.089 ng/mL 08/02/20 11:29 Total Protein 5.9 g/dL (6.3-8.2) L 08/01/20 22:55 Albumin 3.1 g/dL (3.5-5.0) L 08/01/20 22:55 TSH 1.24 uIU/mL (0.47-4.68) 08/01/20 22:55 08/01/20 08/02/20 08/02/20 22:55 03:23 11:29 Troponin I 0.102 0.107 0.089 Impressions: Cervical Spine CT 08/01/20 00:00 IMPRESSION: Degenerative disc disease and spondylosis. No acute findings. Head CT 08/01/20 00:00 IMPRESSION: NORMAL BRAIN CT WITHOUT CONTRAST. EVIDENCE OF ACUTE STROKE: NO. Chest X-Ray 08/01/20 22:14 IMPRESSION: No evidence of active intrathoracic disease. Chronic change Pelvis X-Ray 08/01/20 22:14 IMPRESSION: No acute displaced fracture is identified. Modified Barium Swallow 08/02/20 00:00 IMPRESSION: LARYNGEAL PENETRATION WITH THIN BARIUM AND FROM RESIDUALS. PLEASE SEE SPEECH PATHOLOGIST REPORT FOR OTHER FINDINGS AND RECOMMENDATIONS. Pelvis Ultrasound 08/02/20 00:00 IMPRESSION: 1. Irregular hypoechoic area within the region of the uterus measuring 6.8 x 5.3 x 3.7 cm, possibly uterus although patient reportedly status post partial hysterectomy. Recommend correlation with surgical history and physical exam. CT could be considered for further characterization. 2. Unremarkable right ovary. Left ovary nonvisualized. Venous Doppler Study 08/02/20 00:00 IMPRESSION: Negative bilateral lower extremity venous ultrasound. Chest/Abdomen CTA 08/02/20 02:17 IMPRESSION: 1. No evidence of pulmonary embolus. 2. Cholelithiasis. 3. Left renal atrophy partially imaged. 4. Small 4 cm ascending thoracic aortic aneurysm. Abdomen/Pelvis CT 08/04/20 11:06 IMPRESSION: NO SIGNIFICANT OR ACUTE FINDING IN THE ABDOMEN OR PELVIS ON CT SCAN WITH IV CONTRAST. Stroke Is this a Stroke Patient?: No Acute Heart Failure Is this a Heart Failure Patient?: No
== END 2020-08-06 11:20 | disposition home health service (06) | DRG 546 ==
LOC: ER 17:25 → OBSVTOIN 08-02 05:40 → EH 08-02 05:40 → 4N 08-02 07:14
PROVIDERS: ADMIT Student in an Organized Health Care Education/Training Program; ATTEND Internal Medicine
PROC: 3E0234Z Introduction of Serum, Toxoid and Vaccine into Muscle, Percutaneous Approach (ICD-10-PCS; principal; 2020-08-01)
DX: M33.90 Dermatopolymyositis, unspecified, organ involvement unspecified (principal); N39.0 Urinary tract infection, site not specified; R77.8 Other specified abnormalities of plasma proteins; I10 Essential (primary) hypertension; E78.5 Hyperlipidemia, unspecified; E03.9 Hypothyroidism, unspecified; Z91.81 History of falling; E86.0 Dehydration; R13.0 Aphagia; Z79.52 Long term (current) use of systemic steroids; Z79.899 Other long term (current) drug therapy; Z90.710 Acquired absence of both cervix and uterus; D63.8 Anemia in other chronic diseases classified elsewhere; R29.6 Repeated falls; Z23 Encounter for immunization
CPT/HCPCS: 36415; 70450; 71045; 71275; 72125; 72170; 74177; 74230; 76856; 80048; 80053; 82550; 82962; 84443; 84484; 85025; 85379; 87086; 90471; 90715; 93005; 93010; 93970; 93976; 99285; C9113; J0696; J1650; J1815; J2930; J3490; J7060; J7120; J7512